=== PATIENT | female | born 1950 | race Two or more races ===

== ENCOUNTER → 2022-04-10 | Outpatient (CLI) | payer MEDICARE ==
--- NOTE | 2022-04-10 14:16 | US ---
EXAMINATION TYPE: US pelvic complete DATE OF EXAM: 04/10/2022 COMPARISON: NONE CLINICAL HISTORY: 71-year-old female R10.2 PELVIC PAIN. Pressure partial hysterectomy. TECHNIQUE: Transabdominal (TA). FINDINGS: EXAM MEASUREMENTS: Uterus: Surgically absent Endometrial Stripe: Surgically absent Right Ovary: 2.7 x 1.4 x 2.1 cm 1. Uterus: Surgically absent 2. Endometrium: Surgically absent 3. Right Ovary: Tiny 5 mm cyst within, otherwise unremarkable. 4. Left Ovary: Obscured by overlying bowel gas 5. Bilateral Adnexa: wnl 6. Posterior cul-de-sac: wnl IMPRESSION: Status post hysterectomy. Unable to visualize the left ovary. Tiny 5 mm cyst within the right ovary. Consider precautionary one-year follow-up exam.
== END | disposition home or self-care (01) ==
LOC: RADUSWWP 12:19
PROVIDERS: ATTEND Obstetrics & Gynecology
DX: N83.201 Unspecified ovarian cyst, right side (principal); Z90.710 Acquired absence of both cervix and uterus
CPT/HCPCS: 76856

== ENCOUNTER → 2023-03-27 | Outpatient (CLI) | payer MEDICARE ==
[~2023-03-27] MED LIST: DENOSUMAB 60 MG/ML 1 ML SYRINGE SQ NR
[2023-03-27 14:08] VITALS: BP 148/88; PULSE 91; RESP 16; TEMP 97.9
== END ==
LOC: PROCWHC3 13:56
PROVIDERS: ATTEND Internal Medicine Geriatric Medicine
DX: M81.0 Age-related osteoporosis without current pathological fracture (principal)
CPT/HCPCS: 96372; J0897

== ENCOUNTER → 2023-07-29 | Outpatient (CLI) | payer MEDICARE ==
[2023-07-29 13:24] VITALS: BP 151/86; PULSE 94; RESP 16; TEMP 97.7
--- NOTE | 2023-07-29 13:57 | P.PAINPG ---
PQRS Measure Charge Sheet Comment: HISTORY OF PRESENT ILLNESS: A 72 yr old female w daughter at side as a referral from [facility] presents today w severe and chronic LBP > 1 yr secondary to DDD, spondylosis and facet arthropathy without myelopathy for evaluation. Pt states pain level is provoked at 7 /10 in intensity, constant, localized in the lumbar spine, predominantly axial, sharp in character w occasional shooting pain towards the RLE. Pain is provoked by standing/ walking or coughing. Pain is alleviated by alternating heat & ice, medications (Neurontin, Baclofen, Ibu), BioFreeze topical, sitting, repositioning and rest. Oswestry axial pain score at 23. PMH: OA, HTN, Hyperlipidemia, Asthma PSH: Hysterectomy, Bladder Lift, Appendectomy, Tonsillectomy SH: Never smoker, Rare ETOH use, No illicit drug use FH: Fa- CHF All: See list Meds: See list REVIEW OF ORGAN SYSTEMS: CONSTITUTIONAL: No fevers or chills. No recent weight loss. NEUROLOGICAL: + numbness and tingling along the distal extremities. No seizure disorders or headaches. MUSCULOSKELETAL: + pain PSYCHIATRIC: Denies current depression or suicidal thoughts. Physical Examinations : Constitutional : Cooperative , not in acute distress . Neurologic : Cranial nerve II to XII intact. No focal neurological deficits. Psychiatric : alert & oriented x 3. Matching mood & appropriate affect. Judgment & insight intact. Musculoskeletal : Cervical Spine Motor strength in the deltoid and biceps: Normal right side. Normal Left side Motor strength biceps and the wrist extensors: Normal right side . Normal left side Motor strength in the triceps muscle: Normal right side. Normal left side Deep tendon reflexes: Normal at the biceps. Normal at Brachioradialis. Normal at triceps Vertebral body tenderness to deep palpation over Cervical facet loading test: positive bilaterally Spurling test: positive bilaterally Neck distraction test: positive bilaterally Cullen sign: positive bilaterally Lumbar spine Motor strength lower extremities ,thigh and legs 5/5 Right side , 5/5 Left side Deep tendon reflexes : Normal Knee Jerk. Normal Ankle Jerk Vertebral body tenderness over L3 Kulkarni Test positive BL L2-L3 Lumbar facet Loading Test: positive Right / positive Left Range of motion of the lumbar spine Flexion 30 degrees, extension 10 degrees Straight Leg Raise test: Left/ Right positive at degree Lux test: positive right / positive left. Severe tenderness over the Sacroiliac joint on the Right / Left sides Gaenslen test: positive bilaterally Seated flexion test: positive bilaterally. Sacral spine : Severe tenderness over the Sacroiliac joint: right side / left side Range of motion: Flexion of the lumbar spine <60 degrees Range of motion: Extension of the lumbar spine <20 degrees Gaenslen's Test positive Lux test: positive right side / left side Thigh Thrust Test Sacral Thrust Test Imaging: MRI noncontrast of the lumbar spine from 03/11/2023 reviewed Assessment/ Plan : Lumbar DDD Recommendation of NIKA L2-L3 #1. May need a series of injections for optimal pain relief. Risks, benefits of procedure discussed and patient verbalized understanding. Admits to anti- coagulant use or medical history of diabetes. Protocol for discontinuation/ continuation of medications heidi procedure discussed. All questions answered. I have spent greater than 30 minutes on patient care today. Dr Honeycutt was available by phone for the evaluation of this patient. The time was used to review the medical records including relevant urine studies and Prescription history (MAPs), review of the available imaging, evaluation and examination of the patient, coordination of care with the medical staff and if applicable referring physicians, as well as creation of the medical record PQRS Narrative: Smoking Status Former smoker Home Medications: Ambulatory Orders Simvastatin [Zocor] 40 mg PO HS 12/25/13 Baclofen 10 mg PO DAILY 03/27/23 Calcium Carbonate/Vitamin D3 [Calcium 500 mg-Vit D3 5 mcg (200 Unit)] 1 each PO DAILY 03/27/23 Gabapentin [Neurontin] 100 mg PO HS 03/27/23 Ibuprofen [Motrin] 800 mg PO DAILY 03/27/23 Losartan [Cozaar] 50 mg PO DAILY 03/27/23 Montelukast [Singulair] 10 mg PO DAILY 03/27/23 busPIRone HCl [Buspar] 5 mg PO BID 03/27/23 Calcium Carbonate/Vitamin D3 [Calcium 500-Vit D3 5 Mcg (200 Iu)] 1 each PO 07/29/23 Cranberry Fruit Extract [Cranberry] 500 mg PO 07/29/23 Cyanocobalamin [Vitamin B-12] 500 mcg PO DAILY 07/29/23 Ibuprofen 800 mg PO Q8H 07/29/23 Meloxicam 7.5 mg PO 07/29/23 Metoprolol Succinate (ER) [Toprol Xl] 25 mg PO DAILY 07/29/23 Multivitamin [Multivitamins Adult Gummies] 1 each PO 07/29/23 Rosuvastatin Calcium 5 mg PO 07/29/23 busPIRone HCL 5 mg PO BID 07/29/23 hydroCHLOROthiazide 25 mg PO 07/29/23 methocarbamoL 750 mg PO 07/29/23 Controlled Substance Measures - Controlled Substance Measures Is patient prescribed a controlled substance at discharge?: No
== END ==
LOC: PNWHC3 09:34
PROVIDERS: ATTEND Specialist
DX: M47.816 Spondylosis without myelopathy or radiculopathy, lumbar region (principal); M51.36 Other intervertebral disc degeneration, lumbar region; Z87.891 Personal history of nicotine dependence
CPT/HCPCS: 99211

== ENCOUNTER 2023-08-06 06:34 | Day surgery (SDC) | payer MEDICARE ==
[2023-08-02 14:20] VITALS: BMI 19.3
[~2023-08-06 06:34] MED LIST changes: -DENOSUMAB 60 MG/ML 1 ML SYRINGE SQ NR; +LACTATED RINGERS 1,000 ML IV SCH
[2023-08-06 07:25] VITALS: TEMP 98.2
[2023-08-06] MEDS ORDERED: methylPREDNISolone ACETATE 40 MG/ML 1 ML VIAL ONE (07:48)
[2023-08-06] MEDS ORDERED: IOPAMIDOL M200 10 ML VIAL ONE (07:48)
--- NOTE | 2023-08-06 07:55 | P.PCN ---
Date of Procedure: 08/06/23 Procedure(s) Performed: PREOPERATIVE DIAGNOSIS: 1- Lumbar Degenerative Disc Diseases 2-Lumbar spondylosis with Facet arthropathy without myelopathy. POSTOPERATIVE DIAGNOSIS: 1-lumbar degenerative disc disease. 2-lumbar spondylosis with facet arthropathy without myelopathy. PROCEDURE 1. Lumbar epidural steroid injection under fluoroscopic guidance at the L2-3 level. (Fluoroscopy imaging was available in radiology department) 2. Lumbar epidurogram. ANESTHESIA: Lidocaine 1% 3 and then only. EBL: Minimal PROCEDURE INDICATION: The patient with low back pain and radiculitis symptoms unresponsive to conservative treatment. Fluoroscopy was used to optimize visualization of the needle placement and to maximize safety. PROCEDURE DESCRIPTION / TECHNIQUE: The patient was seen and identified in the preoperative area. Risks, benefits, complications including but not limited to infections ,bleeding ,allergic reaction to the medications ,nerve damage and not complete pain releife , and alternatives were discussed with the patient. The patient agreed to proceed with the procedure and signed the consent, and vital signs were stable. Patient was taken to the OR and time out was completed. The patient was placed in the prone position on procedure table and a pillow was placed under the ab domen to reduce lumbar lordosis. The lumbosacral area was prepped and draped in the usual sterile fashion.ere closely monitored during the procedure. Vital signs was monitered during the entire procedure. Using anterior-posterior fluoroscopy, the L2-3 interlaminar space was identified and the skin over this site was marked and then infiltrated with 1% lidocaine subcutaneously. Subsequently, a 20-gauge Tuohy epidural needle was inserted and advanced toward the epidural space using the ``Loss of resistance technique and guided by AP and lateral fluoroscopy. The correct needle position in the epidural space was verified with the injection of 2 mL of the water soluble contrast dye Isovue 200 contrast and observing an excellent epidurogram with the epidural spread of the dye, after negative aspiration for blood and CSF and in the absence of paresthesias. Again after negative aspiration, a 5 ml mixture containing 40 mg of Depo-medrol ( Preservetive Free ), and 2 ml of preservative free Normal Saline, and 2 ml of preservative free lidocaine 1% solution was injected and a washout of epidurogram was seen. Needle was withdrawn intact, skin was cleansed, and bandages were applied. COMPLICATIONS: None DISPOSITION / PLANS: The patient was placed in a supine position and transferred to the recovery area in a stable condition for observation. There was no evidence of lower extremity motor or sensory deficit after the procedure. Patient was discharged from the recovery room after meeting discharge criteria. Home discharge instructions were given to the patient by the staff. The patient was reexamined prior to discharge. The patient will schedule a follow up in the clinic in 2-4 weeks.
[2023-08-06 08:11] VITALS: RESP 16
[2023-08-06 08:55] VITALS: BP 190/96; PULSE 89
--- NOTE | 2023-08-06 13:20 | FL ---
EXAMINATION TYPE: FL guided pain mgmt statistic DATE OF EXAM: 08/06/2023 FLUOROSCOPY Fluoroscopy time of 3 seconds was used during lumbar epidural steroid injection. 1 image/s document/ s the procedure. .[id number] mGycm2 DAP dose
== END 2023-08-06 08:30 | disposition home or self-care (01) ==
LOC: ORPAIN 06:34
PROVIDERS: ATTEND Specialist
DX: M51.16 Intervertebral disc disorders with radiculopathy, lumbar region (principal); M47.26 Other spondylosis with radiculopathy, lumbar region; Z79.899 Other long term (current) drug therapy
CPT/HCPCS: 62323; Q9966; J1010

== ENCOUNTER → 2023-08-29 | Outpatient (CLI) | payer MEDICARE ==
[2023-08-29 10:15] VITALS: BP 180/88; PULSE 78; RESP 15; TEMP 98.2
--- NOTE | 2023-08-29 14:32 | P.PAINPG ---
PQRS Measure Charge Sheet Comment: HISTORY OF PRESENT ILLNESS: A 72 yr old female w daughter at side presents today w severe and chronic LBP > 1 yr secondary to DDD, spondylosis and facet arthropathy without myelopathy for evaluation s/p INKA L2-L3 #1. Pt states she experienced 80 % pain relief x 3 wks s/p procedure. Pt states pain level is provoked at 1 /10 in intensity, constant, localized in the lumbar spine, predominantly axial, sharp in character w occasional shooting pain towards the RLE. Pain is provoked by standing/ walking or coughing. Pain is alleviated by physician guided home stretching regimen daily since Mar 2023, alternating heat & ice, medications, topical, sitting, repositioning and rest. Oswestry axial pain score at 12. Interventional procedures include NIKA L2-L3 x1 Medications include Neurontin, Baclofen, Ibu, BioFreeze Gel REVIEW OF ORGAN SYSTEMS: CONSTITUTIONAL: No fevers or chills. No recent weight loss. NEUROLOGICAL: + numbness and tingling along the distal extremities. No seizure disorders or headaches. MUSCULOSKELETAL: + pain PSYCHIATRIC: Denies current depression or suicidal thoughts. Physical Examinations : Constitutional : Cooperative , not in acute distress . Neurologic : Cranial nerve II to XII intact. No focal neurological deficits. Psychiatric : alert & oriented x 3. Matching mood & appropriate affect. Judgment & insight intact. Musculoskeletal : Cervical Spine Motor strength in the deltoid and biceps: Normal right side. Normal Left side Motor strength biceps and the wrist extensors: Normal right side . Normal left side Motor strength in the triceps muscle: Normal right side. Normal left side Deep tendon reflexes: Normal at the biceps. Normal at Brachioradialis. Normal at triceps Vertebral body tenderness to deep palpation over Cervical facet loading test: positive bilaterally Spurling test: positive bilaterally Neck distraction test: positive bilaterally Cullen sign: positive bilaterally Lumbar spine Motor strength lower extremities ,thigh and legs 5/5 Right side , 5/5 Left side Deep tendon reflexes : Normal Knee Jerk. Normal Ankle Jerk Vertebral body tenderness over L3 Kulkarni Test positive BL L2-L3 Lumbar facet Loading Test: positive Right / positive Left Range of motion of the lumbar spine Flexion 30 degrees, extension 10 degrees Straight Leg Raise test: Left/ Right positive at degree Lux test: positive right / positive left. Severe tenderness over the Sacroiliac joint on the Right / Left sides Gaenslen test: positive bilaterally Seated flexion test: positive bilaterally. Sacral spine : Severe tenderness over the Sacroiliac joint: right side / left side Range of motion: Flexion of the lumbar spine <60 degrees Range of motion: Extension of the lumbar spine <20 degrees Gaenslen's Test positive Lux test: positive right side / left side Thigh Thrust Test Sacral Thrust Test Imaging: MRI noncontrast of the lumbar spine from 03/11/2023 reviewed Assessment/ Plan : Lumbar DDD Will manage residual pain and may RTC on an as needed basis. All questions answered. I have spent greater than 30 minutes on patient care today. Dr Honeycutt was av ailable by phone for the evaluation of this patient. The time was used to review the medical records including relevant urine studies and Prescription history (MAPs), review of the available imaging, evaluation and examination of the patient, coordination of care with the medical staff and if applicable referring physicians, as well as creation of the medical record PQRS Narrative: Smoking Status Former smoker Hx Alcohol Use (MH) No Home Medications: Ambulatory Orders Baclofen 10 mg PO QAM 03/27/23 Gabapentin [Neurontin] 100 mg PO HS 03/27/23 Losartan [Cozaar] 50 mg PO QAM 03/27/23 Montelukast [Singulair] 10 mg PO QAM 03/27/23 Calcium Carbonate/Vitamin D3 [Calcium 500-Vit D3 5 Mcg (200 Iu)] 1 each PO QAM 07/29/23 Cranberry Fruit Extract [Cranberry] 500 mg PO QAM 07/29/23 Cyanocobalamin [Vitamin B-12] 500 mcg PO QAM 07/29/23 Ibuprofen 800 mg PO Q8H PRN 07/29/23 Meloxicam 7.5 mg PO QAM 07/29/23 Metoprolol Succinate (ER) [Toprol Xl] 25 mg PO QAM 07/29/23 Multivitamin [Multivitamins Adult Gummies] 1 each PO QAM 07/29/23 Rosuvastatin Calcium 5 mg PO QAM 07/29/23 busPIRone HCL 5 mg PO BID 07/29/23 hydroCHLOROthiazide 25 mg PO QAM 07/29/23 methocarbamoL 750 mg PO TID PRN 07/29/23 Controlled Substance Measures - Controlled Substance Measures Is patient prescribed a controlled substance at discharge?: No
== END | disposition home or self-care (01) ==
LOC: PNWHC3 09:31
PROVIDERS: ATTEND Specialist
DX: M51.36 Other intervertebral disc degeneration, lumbar region (principal); Z87.891 Personal history of nicotine dependence
CPT/HCPCS: 99211

== ENCOUNTER → 2023-09-27 | Outpatient (CLI) | payer MEDICARE ==
[2023-09-27] MEDS: DENOSUMAB 60 MG/ML 1 ML SYRINGE SQ NR (13:15)
[2023-09-27 13:19] VITALS: BP 133/72; PULSE 96; RESP 16; TEMP 97.8
== END ==
LOC: PROCWHC3 13:03
PROVIDERS: ATTEND Internal Medicine Geriatric Medicine
DX: M81.0 Age-related osteoporosis without current pathological fracture (principal)
CPT/HCPCS: 96372; J0897

== ENCOUNTER → 2023-10-02 | Outpatient (CLI) | payer MEDICARE ==
[2023-10-02 09:45] VITALS: BP 149/79; PULSE 79; RESP 16
--- NOTE | 2023-10-02 14:47 | P.PAINPG ---
Objective - Vital Signs Vital signs: Intake & Output 10/01/23 10/02/23 10/02/23 18:59 06:59 18:59 Weight 42.638 kg PQRS Measure Charge Sheet History and Exam Findings: All other causes of pain ruled out Comment: HISTORY OF PRESENT ILLNESS: A 72 yr old female presents today w severe and chronic LBP > 1 yr secondary to DDD, spondylosis and facet arthropathy without myelopathy for evaluation . Pt states pain level is provoked at 8 /10 in intensity, constant, localized in the lumbar spine, predominantly axial, sharp in character w occasional shooting pain towards the RLE. Pain is provoked by standing/ walking or coughing. Pain is alleviated by physician guided home stretching regimen daily since Mar 2023, alternating heat & ice, medications, topical, sitting, repositioning and rest. Oswestry axial pain score at 15. Interventional procedures include NIKA L2-L3 x1 Medications include Neurontin, Baclofen, Ibu, BioFreeze Gel REVIEW OF ORGAN SYSTEMS: CONSTITUTIONAL: No fevers or chills. No recent weight los s. NEUROLOGICAL: + numbness and tingling along the distal extremities. No seizure disorders or headaches. MUSCULOSKELETAL: + pain PSYCHIATRIC: Denies current depression or suicidal thoughts. Physical Examinations : Constitutional : Cooperative , not in acute distress . Neurologic : Cranial nerve II to XII intact. No focal neurological deficits. Psychiatric : alert & oriented x 3. Matching mood & appropriate affect. Judgment & insight intact. Musculoskeletal : Cervical Spine Motor strength in the deltoid and biceps: Normal right side. Normal Left side Motor strength biceps and the wrist ex tensors: Normal right side . Normal left side Motor strength in the triceps muscle: Normal right side. Normal left side Deep tendon reflexes: Normal at the biceps. Normal at Brachioradialis. Normal at triceps Vertebral body tenderness to deep palpation over Cervical facet loading test: positive bilaterally Spurling test: positive bilaterally Neck distraction test: positive bilaterally Cullen sign: positive bilaterally Lumbar spine Motor strength lower extremities ,thigh and legs 5/5 Right side , 5/5 Left side Deep tendon reflexes : Normal Knee Jerk. Normal Ankle Jerk Vertebral body tenderness over L3 Kulkarni Test positive BL L2-L3 Lumbar facet Loading Test: positive Right / positive Left Range of motion of the lumbar spine Flexion 30 degrees, extension 10 degrees Straight Leg Raise test: Left/ Right positive at degree Lux test: positive right / positive left. Severe tenderness over the Sacroiliac joint on the Right / Left sides Gaenslen test: positive bilaterally Seated flexion test: positive bilaterally. Sacral spine : Severe tenderness over the Sacroiliac joint: right side / left side Range of motion: Flexion of the lumbar spine <60 degrees Range of motion: Extension of the lumbar spine <20 degrees Gaenslen's Test positive Lux test: positive right side / left side Thigh Thrust Test Sacral Thrust Test Imaging: MRI noncontrast of the lumbar spine from 03/11/2023 reviewed Assessment/ Plan : Lumbar DDD Recommendation of NIKA L2-L3 #2. May need series of injections for optimal pain relief. Risks, benefits of procedure discussed and pt verbalized understanding. Protocol for discontinuation/ continuation of medications heidi procedure discussed. All questions answered. I have spent greater than 30 minutes on patient care today. Dr Honeycutt was available by phone for the evaluation of this patient. The time was used to review the medical records including relevant urine studies and Prescription history (MAPs), review of the available imaging, evaluation and examination of the patient, coordination of care with the medical staff and if applicable referring physicians, as well as creation of the medical record PQRS Narrative: Smoking Status Former smoker Hx Alcohol Use (MH) No Home Medications: Ambulatory Orders Baclofen 10 mg PO QAM 03/27/23 Gabapentin [Neurontin] 100 mg PO HS 03/27/23 Losartan [Cozaar] 50 mg PO QAM 03/27/23 Montelukast [Singulair] 10 mg PO QAM 03/27/23 Calcium Carbonate/Vitamin D3 [Calcium 500-Vit D3 5 Mcg (200 Iu)] 1 each PO QAM 07/29/23 Cranberry Fruit Extract [Cranberry] 500 mg PO QAM 07/29/23 Cyanocobalamin [Vitamin B-12] 500 mcg PO QAM 07/29/23 Ibuprofen 800 mg PO Q8H PRN 07/29/23 Meloxicam 7.5 mg PO QAM PRN 07/29/23 Metoprolol Succinate (ER) [Toprol Xl] 25 mg PO QAM 07/29/23 Multivitamin [Multivitamins Adult Gummies] 1 each PO QAM 07/29/23 Rosuvastatin Calcium 5 mg PO QAM 07/29/23 busPIRone HCL 5 mg PO BID 07/29/23 hydroCHLOROthiazide 25 mg PO QAM 07/29/23 Controlled Substance Measures - Controlled Substance Measures Is patient prescribed a controlled substance at discharge?: No
== END ==
LOC: PNWHC3 09:31
PROVIDERS: ATTEND Specialist
DX: M51.36 Other intervertebral disc degeneration, lumbar region (principal); Z87.891 Personal history of nicotine dependence
CPT/HCPCS: 99211

== ENCOUNTER 2023-11-07 12:41 | Day surgery (SDC) | payer MEDICARE ==
[2023-11-07 13:15] VITALS: TEMP 98.9
[2023-11-07] MEDS ORDERED: methylPREDNISolone ACETATE 40 MG/ML 1 ML VIAL ONE (13:32)
[2023-11-07] MEDS ORDERED: IOPAMIDOL M200 10 ML VIAL ONE (13:32)
--- NOTE | 2023-11-07 13:38 | P.PCN ---
Date of Procedure: 11/07/23 Procedure(s) Performed: PREOPERATIVE DIAGNOSIS: 1- Lumbar Degenerative Disc Diseases 2-Lumbar spondylosis with Facet arthropathy without myelopathy. POSTOPERATIVE DIAGNOSIS: 1-lumbar degenerative disc disease. 2-lumbar spondylosis with facet arthropathy without myelopathy. PROCEDURE 1. Lumbar epidural steroid injection under fluoroscopic guidance at the L2-3 level. (Fluoroscopy imaging was available in radiology department) 2. Lumbar epidurogram. ANESTHESIA: Lidocaine 1% 3 and then only. EBL: Minimal PROCEDURE INDICATION: The patient with low back pain and radiculitis symptoms unresponsive to conservative treatment. Fluoroscopy was used to optimize visualization of the needle placement and to maximize safety. PROCEDURE DESCRIPTION / TECHNIQUE: The patient was seen and identified in the preoperative area. Risks, benefits, complications including but not limited to infections ,bleeding ,allergic reaction to the medications ,nerve damage and not complete pain releife , and alternatives were discussed with the patient. The patient agreed to proceed with the procedure and signed the consent, and vital signs were stable. Patient was taken to the OR and time out was completed. The patient was placed in the prone position on procedure table and a pillow was placed under the abd omen to reduce lumbar lordosis. The lumbosacral area was prepped and draped in the usual sterile fashion.ere closely monitored during the procedure. Vital signs was monitered during the entire procedure. Using anterior-posterior fluoroscopy, the L2-3 interlaminar space was identified and the skin over this site was marked and then infiltrated with 1% lidocaine subcutaneously. Subsequently, a 20-gauge Tuohy epidural needle was inserted and advanced toward the epidural space using the ``Loss of resistance technique and guided by AP and lateral fluoroscopy. The correct needle position in the e pidural space was verified with the injection of 2 mL of the water soluble contrast dye Isovue 200 contrast and observing an excellent epidurogram with the epidural spread of the dye, after negative aspiration for blood and CSF and in the absence of paresthesias. Again after negative aspiration, a 5 ml mixture containing 40 mg of Depo-medrol ( Preservetive Free ), and 2 ml of preservative free Normal Saline, and 2 ml of preservative free lidocaine 1% solution was injected and a washout of epidurogram was seen. Needle was withdrawn intact, skin was cleansed, and bandages were applied. COMPLICATIONS: None DISPOSITION / PLANS: The patient was placed in a supine position and transferred to the recovery area in a stable condition for observation. There was no evidence of lower extremity motor or sensory deficit after the procedure. Patient was discharged from the recovery room after meeting discharge criteria. Home discharge instructions were given to the patient by the staff. The patient was reexamined prior to discharge. The patient will schedule a follow up in the clinic in 2-4 weeks.
[2023-11-07 13:45] VITALS: BP 117/59; PULSE 83; RESP 18
--- NOTE | 2023-11-07 13:48 | FL ---
Intraoperative/procedural fluoroscopic services were provided for lumbar epidural steroid injection. Total fluoroscopy time is 1.4 seconds with a total of 1 submitted image to PACS. Total DAP [id number] mG ym2. Please see the operative note for further details.
== END 2023-11-07 13:53 ==
LOC: ORPAIN 12:41
PROVIDERS: ATTEND Specialist
DX: M51.16 Intervertebral disc disorders with radiculopathy, lumbar region (principal); M47.26 Other spondylosis with radiculopathy, lumbar region; Z79.1 Long term (current) use of non-steroidal anti-inflammatories (NSAID)
CPT/HCPCS: 62323; Q9966; J1010

== ENCOUNTER → 2024-01-08 | Outpatient (CLI) | payer MEDICARE ==
--- NOTE | 2024-01-13 13:46 | MR ---
EXAMINATION TYPE: MR lumbar spine wo con DATE OF EXAM: 01/08/2024 COMPARISON: None HISTORY: Lower back pain, BLE radiculopathy. CONTRAST: 0 mL intravenous Gadavist. TECHNIQUE: Multiplanar, multisequence images of the lumbar spine were acquired. FINDINGS: There may be a transitional level. For purposes of this examination the lowest disc level i s labeled S1-2. Plain film correlation recommended prior to any surgical intervention. 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 Lowest disc level appears to be the S1-2 level L5-S1: Disc desiccation and narrowing of disc height is present. No AP spinal canal stenosis present. Facet hypertrophy is present. Neural foramen are patent. L4-L5: Ligamentum flavum laxity has posterior lateral thecal sac contact. No AP spinal canal stenosis is present. Neural foramen are patent. L3-L4: Broad-based disc bulge has moderate anterior thecal sac compression. Facet hypertrophy and lig amentum flavum laxity of posterior lateral thecal sac compression. Findings are contributing to moder ate to severe spinal canal stenosis. Mild right and severe left foraminal stenosis is present. Very s ubtle grade 1 spondylolisthesis of L3 anterior to L4 may be present with disc uncovering. L2-L3: Disc bulge is present with moderate anterior thecal sac flattening. Facet hypertrophy and liga mentum flavum laxity are contributing to spinal canal narrowing. Severe right foraminal stenosis is p resent. L1-L2: No significant disc bulge or disc herniation. No spinal canal stenosis. No foraminal stenosi s. T12-L1: No significant disc bulge or disc herniation. No spinal canal stenosis. No foraminal stenos is. IMPRESSION: 1. Spinal canal stenosis L3-4 and to a lesser degree L2-3. 2. Foraminal stenosis appears severe left L3-4, right L2-3 3. Mild grade 1 spondylolisthesis of L3 anteriorly on L4. [facility], , 01/13/2024 1:44 PM
== END | disposition home or self-care (01) ==
LOC: RADMRIMAIN 13:22
PROVIDERS: ATTEND Orthopaedic Surgery
DX: M47.27 Other spondylosis with radiculopathy, lumbosacral region (principal); M51.17 Intervertebral disc disorders with radiculopathy, lumbosacral region; M43.16 Spondylolisthesis, lumbar region; M48.061 Spinal stenosis, lumbar region without neurogenic claudication; M99.73 Connective tissue and disc stenosis of intervertebral foramina of lumbar region
CPT/HCPCS: 72148

== ENCOUNTER → 2024-03-13 | Outpatient (CLI) | payer MEDICARE ==
--- NOTE | 2024-03-13 13:28 | CT ---
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 Bone and soft tissue window settings are submitted as well as coronal and sagittal reconstructions. CT DLP: [address] CTDI: mGy Automated exposure control for dose reduction was used. FINDINGS: The lumbar vertebral segments are normal in height. Slight grade 1 anterolisthesis of L2 on L3. There is moderate disc space narrowing and spondylosis at the L2-3 and L4-5 levels indicating moderate deg enerative disc disease. The L1-2, L3-4 and L5-S1 discs are normal There is no lumbar disc herniation. Secondary to circumferential disc bulge and thickening of ligamentum flavum there is severe spinal st enosis at the L2-3 level. Similar changes result in moderate spinal stenosis at the L3-4 level. There is moderate facet degeneration from L2 through S1. There is no significant bony neural foramina l encroachment. IMPRESSION: 1. Grade 1 anterolisthesis of L2 on L3. 2. Moderate degenerative disc disease at the L2-3 and L4-5 level. 3. No lumbar disc herniation. 4. Severe spinal stenosis at the L2-3 level and moderate spinal stenosis at the L4-5 level. 5. Moderate facet arthropathy throughout the lumbar spine. [facility], , 03/13/2024 1:26 PM
== END | disposition home or self-care (01) ==
LOC: RADCTMAIN 11:27
PROVIDERS: ATTEND Orthopaedic Surgery
DX: M48.061 Spinal stenosis, lumbar region without neurogenic claudication (principal); M51.369 Other intervertebral disc degeneration, lumbar region without mention of lumbar back pain or lower extremity pain; M47.816 Spondylosis without myelopathy or radiculopathy, lumbar region; M43.16 Spondylolisthesis, lumbar region
CPT/HCPCS: 72131

== ENCOUNTER → 2024-04-29 | Outpatient (CLI) | payer MEDICARE | END | disposition home or self-care (01) | LOC: LABPAT 11:40 | PROVIDERS: ATTEND Orthopaedic Surgery | DX: Z01.812 Encounter for preprocedural laboratory examination (principal); M43.16 Spondylolisthesis, lumbar region; M48.061 Spinal stenosis, lumbar region without neurogenic claudication; Z22.322 Carrier or suspected carrier of Methicillin resistant Staphylococcus aureus | CPT/HCPCS: 36415; 86850; 86900; 86901; 87070 ==

== ENCOUNTER 2024-05-05 09:39 | Inpatient (IN) | payer MEDICARE ==
--- NOTE | 2024-05-04 19:32 | P.HPOR ---
"History of Present Illness H&P Date: 04/29/24 .D:Date: 04/29/24 : 01:22pm .T:Title: *PRE-OP H1 [facility] [address] [place] [id number]| PROVIDER: MIKEY LINDO DO CLINICAL SUMMARY: *Ms. Bolanos, a 73-year-old female, presents for pre-operative evaluation before scheduled L3-pelvis decompression with posterolateral and interbody fusion. She reports progressive lumbar pain (VAS 4/10) radiating bilaterally into her lower extremities with persistent numbness and tingling, worse on the right. Physical exam reveals bilateral lower extremity weakness (4/5 strength), positive straight leg raise on the right, and positive bilateral SIJ testing. Imaging demonstrates unstable grade 1 spondylolisthesis at L3-4 and L4-5 with severe central and bilateral foraminal stenosis, along with significant degenerative changes at L5-S1. Conservative management including physical therapy, NIKA injections, medications (NSAIDs, gabapentin, muscle relaxants), and activity modifications has failed to provide relief. Surgery is deemed medically necessary due to progressive neurological deficits and documented instability affecting her quality of life. PROCEDURE: L3-PELVIS DECOMPRESSION AND FUSION DEMOGRAPHICS: Age: 73 year Height: 5' Weight: 104 lbs BP:100/64 BMI: 20.32 kg/m2 Occupation: *Retired CC: *lumbar pain VAS: * 4 HISTORY: Ms. Bolanos presents to the office today, 04/29/24, for *a pre-operative appointment preceding her L3-PELVIS DECOMPRESSION WITH POSTEROLATERAL AND INTERBODY FUSION. Patient describes an aching and burning lumbar pain that radiates into the buttocks and posterior bilateral lower extremities into her toes, associated with persistent numbness and tingling. She does report that her right side is worse. Patient states her pain is increased with walking, sitting, and sit to stand. Patient states she is limited in her ROM of the lumbar spine with bending and twisting. For her symptoms, she has been taking Motrin. She has received several lumbar ESIs with no relief. Patient denies any f/c/sob/cp, perineal numbness or tingling, bowel, or bladder incontinence/retention. Patient is ambulatory independently. P1 The patients past social, medical, family, surgical history, as well as review of systems, have been reviewed. Please refer to the History and Physical form that has been scanned into our electronic medical record system. R0 16 points review of systems completed and as stated in HPI, all other sy stems reviewed are negative. PAST TREATMENTS: PAST IMAGING: YES - TRAUMA RELATED: NO - WORK RELATED: NO - PT IN LAST 6 MONTHS: YES -x2 rounds. First round 30% helpful. Second round minimal help PHYSICIAN DIRECTED HOME EXERCISE PROGRAM: YES -Minimal help ACTIVITY MODIFICAITON: YES -Limited BLTPP 15 lbs MEDICATIONS: YES -[place], Flexeril, Motrin, Tylenol ALTERNATIVE INTERVENTIONS (CHIROPRACTIC, ACCUPUNCTURE, MASSAGE, RICE): YES - BRACING: NO - INJECTIONS (NIKA, TF, RFA): YES, no relief - MEDICAL HISTORY: Past Medical History: REVIEWED STATED IN CHART Past Surgical History: REVIEWED STATED IN CHART Social History: REVIEWED STATED IN CHART SMOKING: Never smoker ETOH: None SUBSTANCES: None Family History: REVIEWED STATED IN CHART P1 Current Medications: Rx: busPIRone Ref: 0 Rx: gabapentin 100 mg capsule Ref: 0 Instructions: take 1 capsule (100 mg) by oral route 3 times per day Rx: losartan 25 mg tablet Ref: 0 Instructions: take 1 tablet (25 mg) by oral route once daily Rx: montelukast 10 mg tablet Ref: 0 Instructions: take 1 tablet (10 mg) by oral route once daily in the evening Rx: rosuvastatin 5 mg tablet Ref: 0 Instructions: take 1 tablet (5 mg) by oral route once daily Rx: IBU 800 mg tablet Ref: 0 Instructions: take 1 tablet (800 mg) by oral route 3 times per day with food Rx: methocarbamoL 750 mg tablet Ref: 0 Instructions: take 1 tablet (750 mg) by oral route 3 times per day as needed for muscle spasm Rx: metoprolol tartrate 25 mg tablet Ref: 0 Instructions: take 1 tablet (25 mg) by oral route 2 times per day Rx: gabapentin 300 mg capsule Ref: 0 Instructions: take 1 capsule (300 mg) by oral route 3 times per day Rx: predniSONE 20 mg tablet Ref: 0 Instructions: take 1 tablet (20 mg) by oral route 2 times per day P1 PHYSICAL EXAM: General: AOX3, NAD, Well hydrate, well nourished HEENT: No lumps or masses Extremities: No color changes, no pooling INTEGUMENT: Appearance: Normal color and turgor Surgical Incisions: NA Hairy Patches: ABSENT Dorsal Skin Dimples: Normal [employer] spots: ABSENT PALPATION: TTP Midline: NO Paracervical: NO Parathoracic: NO Paralumbar: YES SIJ TESTING: TESTED R/L * [place] Finger: +/+ * FABER4: +/+ * Compression:-+/+ * Distraction: -/+ * Thigh thrust: -+/+ * Hip thrust: +/+ POSTURAL BALANCE: Coronal: BALANCED Sagittal: BALANCED Shoulder height: LEVEL Pelvic Girdle: LEVEL ROM AND APPEARANCE: Neck: UNRESTRICTED Lumbar: RESTRICTED Shoulders: Symmetrical Hips: Symmetrical Knees: Symmetrical Hands: Symmetrical Feet: Symmetrical VASCULAR STATUS: PALPABLE PULSES B/L UE AND LE 2/4 RAD/ULNAR/DP/PT Edema: NONE NEUROLOGICAL EXAMINATION: Mental Status: Awake, alert, fully oriented with normal attention, concentration, and memory. Fluent appropriate speech. CRANIAL NERVES: I: Olfactory not assessed. II: Visual acuity normal, no visual field deficit noted with confrontation. III, IV: Normal pupillary reflexes & intact extraocular movements without nystagmus. V, : Intact symmetrical facial sensation. VII: Intact symmetrical facial motor movement: Hearing intact. IX, X: Intact gag, swallow, & normal voice. XI: Sternocleidomastoid, trapezius function intact. XII: Tongue midline with normal movements. TENSIONING: * L'HERMITTE'S SIG:NEG SPURLUNG'S SIGN:NEG CUBITAL TUNNEL COMPRESSION:NEG TINELS AT WRIST:NEG STRAIGH LEG RAISE:POS CONTRALATERAL STRAIGHT LEG RAISE: NEG MOTOR EXAM (0-5/5, NT) Muscle appearance: Symmetrical, without signs of atrophy or dystrophy UPPER EXTREMITY RIGHT LEFT Shoulder Abduction 5 5 Biceps 5 5 Triceps 5 5 Wrist Extension 5 5 Hand Intrinsics 5 5 It Director 5 5 LOWER EXTREMITY RIGHT LEFT Hip Flexion 4 4 Knee Extension 4 4 Knee Flexion 4 4 Dorsiflexion 4 4 Plantarflexion 4 4 EHL 4 4 FHL 4 4 REFLEXES (0-4/2, NT): RIGHT LEFT Bicep 2 2 Brachioradialis 2 2 Triceps 2 2 Patellar 2 1 Achilles 1 2 PATHOLOGICAL REFLEXES: RIGHT LEFT ESTEBAN'S ABSENT ABSENT CLONUS ABSENT ABSENT BABINSKI ABSENT ABSENT RECTAL TONE: INTACT/NT SENSATION (0-4, NT): Sensation intact to LT and Pain * C5-T1 distribution BUE * L2-S2 distribution BLE *Exceptions below* DERMATOMAL DEFICIT/RADICULAR PATTERN: L3-S1 B/L GAIT AND FUNCTIONAL EVALUATION: AMBULATORY AID none ROMBERG'S TEST INTACT HAND AND FINGER DEXTERITY INTACT YES DYSDIADOCHOKINESIA EXAM NEG B/L YES TOE/HEEL WALK INTACT WITH GOOD BALANCE NO SQUAT AND RISE W/O ASSISTANCE TO 60 DEG KNEE FLEXION NO SINGLE LEG STANCE NOT INTACT [place] NT IMAGING: XRAY Date: 09/30/23 Location: in office Region: lumbar spine Views: 2 views IMAGES ARE REVIEWED WITH THE PATIENT IN OFFICE AND DEMONSTRATE THE FOLLOWING: FINDINGS: Unstable spondylolisthesis grade 1 L3-4, L4-5 on F/E films with severe degenerative collapse. Transitional anatomy with mobile S1-2 disc. Severe spondylosis L3-S1 with facet arthrosis severe. No fractures or lesions. Flattened LL due to the collapse noted. MRI Date: 01/08/24 Location: [facility] Region: lumbar Contrast: N IMAGES ARE REVIEWED WITH THE PATIENT IN OFFICE AND DEMONSTRATE THE FOLLOWING: FINDINGS: Transitional anatomy S1-2 noted with mobile disc. -L3-4 Grade 1 spondylolisthesis, unstable with severe central and b/l foraminal stenosis with degnerative disc herniation, ligamental hypertrophy and boggy facets b/l contributing. Pars elongation noted. -L4-5 Grade 1 spondylolisthesis, central and b/l foraminal stenosis that is moderate. Degenerative changes with disc collapse, modic changes II and facet arthroatphy with overgrowth -L5-S1 spondylosis with severe degenerative changes, degneratice collpase and facet arthropathy contributing to moderate central and severe b/l foraminal stenosis. -No fractures -No lesions IMPRESSION: It was my pleasure to have seen and examined Janel. I reviewed the patient's clinical syndrome, physical findings, and imaging studies during the appointment today. It is my impression that the patient has a diagnosis of. 1.L3-4 spondylolisthesis grade 1, spondylosis, and stenosis, severe 2.L4-5 spondylolisthesis grade 1, spondylosis, and stenosis, moderate 3.L5-S1 spondylolisthesis, spondylosis, and stenosis, moderate 4. Lower extremity radiculopathy and weakness 5. Low back pain PLAN: DISCUSSION: -Patient has trialed conservative measures without resolution of her symptoms. We have discussed different treatment options including non-operative and operative courses. At this time the patient has trialed Rx and OTC medications, PT, Home exercies program, massage therapy, water aerobics and multiple other modalities without resolution of their symptoms. She continuers to progress despite these treatemtns and is ready to pursue surgical options. We discussed risks and benefits as outlined below and they are electing to proceed with surgery. SURGICAL RECOMMENDATION -L3-PELVIS DECOMPRESSION WITH POSTEROLATERAL AND INTERBODY FUSION THERAPIES -CONT IF ABLE. -Cont. with home exercises and home PT exercises as able -Cont. with Heat/Ice as warranted -Cont. with supplementation Vit D, Vit C, Ca2+, High protein diet -OK for massage or other alternative treatment modalities as able. If it exacerbates your sx do not continue ACTIVITY -Recommend walking up to 30 min 2x daily on a flat easy surface with good support. -LIMIT BLTPP TO LESS THAN 20 LBS MEDICATIONS -I sent a prescription for Gabapentin 300 and Prednisone 20mg to patient's pharmacy today -Take as directed -Cont. home medications as directed by your PCP. Check with your PCP for any medication interactions or issues if needed. Surgical Procedure Risk Review Janel Bolanos is a 73 year old female presenting for evaluation of sudden onset of continued progressive low back pain, LE weakness, difficulty walking distances with deterioration in gait and station. She is having progressive weakness in her LE b/l as well as numbness and paresthesias. . It was my pleasure to have seen and examined Ms. Bolanos. In our visit today we have had a chance to go over subjective complaints, physical examination findings and treatments, including the natural course history without intervention and various interventional options. The imaging demonstrates L3-S1 severe spondylosis with stenosis. L3-4 and L4-5 Grade 1 spondylolisthesis,unstable. Severe facet arthrosis. On physical exam, Ms. Bolanos demonstrates weakness in b/l LE, pain with ROM of the low back, difficuilty with functioal movements due to her back and leg issues. Continued and progressive sx despite conservative measures. I explained to the patient that as her condition progresses it could cause continued and progressive pain, debility and weakenss . At this time, based on the patients imaging and physical exam, I recommend surgery in the form or a: L3-PELVIS DECOMPRESSION WITH POSTEROLATERAL AND INTERBODYFUSION . I discussed the risk and benefits of this procedure at length with Ms. Bolanos. The patient agreed to consider pursuing the procedure mentioned above. Plan: 1. L3-PELVIS DECOMPRESSION WITH POSTEROLATERAL AND INTERBODY FUSION 2. Follow up with PCP for surgical clearance 3. Review of surgical risks and benefits as well as an educational packet on the proposed surgical procedure. 4. PRE OP LABS, CBC, BMP, PT/INR, CXR, EKG 5. PRE OP PLANNING CT SCAN W/O CONTRAST Risks: All surgical procedures come with inherent risks, including those related to positioning, anesthesia, intraoperative findings, and postoperative complications. It is important to understand that surgery does not come with any guarantee of a successful outcome as complications and adverse events are always possible. The patient was given a handout in office today discussing the surgical procedure and risks associated with the intervention, both of which were discussed with the patient. These risks include but are not limited to the following: ? Experiencing same, different or even worse symptoms in back, neck, arms, or legs compared to before surgery. ? Requiring further surgery or other forms of treatment presently or at some time in the future at same or other levels of the intended spine surgery. ? On an extreme but fortunately relatively rare basis severe complication such as blindness, stroke, heart attack, temporary and/or permanent nerve injury, paralysis, coma, or may occur, sometimes without known explanation. ? Surgical complications may include but are not limited to risk of infection, fluid accumulation in the surgical dissection site, including a seroma or hematoma, that requires additional surgery, wound drainage, bleeding, new numbness or weakness, vision changes/loss, spinal fluid leakage, non-healing and/or infected incision, headaches, difficulty or inability to swallow, hoarseness, hemopneumothorax, pneumothorax, impotence, retrograde ejaculation, vaginal dryness; injury to nerves, spinal cord, blood vessels, lymphatics or other vital organs (i.e., bowel injury, injury to the great vessels); heterotopic bone formation; complications related to the hardware such as screws, rods, cages including misplaced hardware, device failure, instrumentation at the wrong spine level, hardware fracture/breakage, or hardware loosening; vertebral failure of the spinal column above or below the newly placed hardware; retained surgical instrumentations or devices and the need for further surgery. ? Medical risks of the planned spine surgery include but are not limited to generalized Infections to the whole body or local areas outside of the surgical site (sepsis), heart attack, bleeding, anaphylaxis, meningitis, seizure, epilepsy, hearing loss, burn swanson, laceration of the head or other areas of the body, bruising, hypersensitivity of the skin, bladder over distension; allergic reaction; shoulder injury related to positioning; fat, blood and air clots to other areas of the body like heart, lungs, brain; failure of internal organs such as lungs, kidneys, liver and excessive bleeding. If blood transfusions are necessary, note that transfusions may cause intolerance reactions such as anaphylaxis or other complex reactions. Despite best efforts, the results of spine surgery might not heal in terms of bone, soft tissues such as skin, fascia, ligaments, and joints. Additionally, in order to achieve best possible results, spine surgery may be carried out beyond the initially planned levels and involve decompression, fusion including insertion of hardware at levels other than the original intended area of surgical interest change some portions of the procedure in order to ensure the best possible outcomes. With spine surgery and spinal fusion, there are different off label uses of instrumentation (devices, implants and hardware) as well as biological substances (bone morphogenic proteins, demineralized bone matrix) as well as using extra bone from allograft sources (i.e. cadaver bone) or autograft (iliac crest bone, ribs, or the spine itself). The patient has been given information about these practices and their inherent risks and benefits. [facility] Physician Assistants are medically trained surgical providers who function in the outpatient, inpatient, and operating room setting under the direct supervision of the attending surgeon.They assist in the operating room with direct supervision of the attending surgeons. The patient has had a chance to review all the listed information, has been given print outs detailing this information, and has had all his/her questions answered to their satisfaction. It was my pleasure to have seen and examined Ms. Bolanos. In our visit today we have had a chance to go over my understanding of our patient's current condition, the natural course history without intervention and various interventional options. Questions were invited and answered, and the patient wishes to proceed as outlined above. I have seen and examined the patient for 25 minutes and we have spent more than 50% of the time in repeat and detailed counseling about the patient's condition, its natural course history with out and as much as can be predicted with surgery and re-review of various surgical treatment options. In conclusion,Ms. Bolanos and her spouse/partner requested we proceed with the above suggested surgery and are willing to accept risks and limitations of the suggested surgery as nature of the disease process and our best attempts at treatment for the condition. SURGICAL CODING AND AUTHORIZATION RATIONALE PATIENT: Janel Bolanos DATE: January 31, 2024 PROVIDER: Mikey Lindo DO CLINICAL PRESENTATION AND HISTORY * 73-year-old female with progressive lumbar pain Failed conservative management including: * Multiple rounds of physical therapy NIKA injections without relief Medications (NSAIDs, muscle relaxants, gabapentin) Home exercise program Activity modifications * Progressive symptoms include: * Bilateral lower extremity weakness (4/5 strength) Radicular symptoms into bilateral lower extremities Positive straight leg raise Difficulty with ambulation Limited ROM of lumbar spine Functional decline despite conservative measures IMAGING FINDINGS * MRI (01/08/24): L3-4: Grade 1 spondylolisthesis, unstable with severe central and bilateral foraminal stenosis L4-5: Grade 1 spondylolisthesis with moderate central and bilateral foraminal stenosis L5-S1: Severe degenerative changes with moderate central and severe bilateral foraminal stenosis X-rays (09/30/23): Demonstrates unstable spondylolisthesis at L3-4, L4-5 on flexion/extension views Severe spondylosis L3-S1 with severe facet arthrosis PLANNED PROCEDURE L3-Pelvis Decompressive Laminectomy with Posterolateral and Interbody Fusion PRIMARY DIAGNOSIS CODES (ICD-10) * M43.16: Spondylolisthesis, lumbar region M48.06: Spinal stenosis, lumbar region M47.26: Cervical radiculopathy with myelopathy, lumbar region M51.36: Other intervertebral disc degeneration, lumbar region M54.16: Radiculopathy, lumbar region M62.81: Muscle weakness (generalized) M54.5: Low back pain PROCEDURE CODES (CPT) WITH RATIONALE * 13085 - Primary lumbar interbody fusion L4-L5 Justified by grade 1 spondylolisthesis with stenosis at L4-L5 83640 - Secondary lumbar interbody fusion L5-S1 Justified by continued pathology and instability at L5-S1 72792 - Posterior segmental instrumentation (3-6 segments) Required for stabilization of multilevel fusion construct 73540 * Pelvic fixation * Required for extension of fusion construct to pelvis due to: Transitional anatomy with mobile S1-2 disc Multiple level instability Advanced age requiring robust fixation Need for solid foundation of construct * 91918/78616 x2 - Decompressive laminectomy with facetectomy and foraminotomy Justified by severe central and foraminal stenosis at multiple levels Required for neural decompression and cage placement 91157 x3 - Insertion of interbody biomechanical devices Required for placement of interbody cages at L3-4, L4-5 and L5-S1 58257 - Stereotactic computer assistance Required for precise screw placement due to complex anatomy and multilevel pathology MEDICAL NECESSITY RATIONALE * Progressive neurological deficit with documented weakness Failed conservative management including: Multiple NIKA injections Two rounds of physical therapy Medication management Activity modification Radiographic evidence of: Multiple level instability Severe stenosis Grade 1 spondylolisthesis at multiple levels Functional decline affecting activities of daily living Progressive symptoms despite maximal conservative therapy Clear correlation between clinical symptoms and imaging findings RISK FACTORS * Advanced age (73) Low BMI (19.53) Multiple medical comorbidities requiring medication management Multilevel pathology requiring complex surgical approach This surgical intervention is considered medically necessary based on: * Failed conservative management Progressive neurological deficit Documented instability Correlation of symptoms with imaging findings Functional decline affecting quality of life FOLLOW UP: *POST-OP PLAN AT NEXT VISIT: * RECHECK PATIENT EDUCATION: Medications Reviewed: YES In our visit today Ms. Bolanos and I have had a chance to go over my understanding of the patient's current condition, the natural course history without intervention and various interventional options. Questions were invited and answered, and the patient wishes to proceed as outlined above. I will be sure to keep you updated after Ms. Bolanos returns here for further follow-up. Thank you again for your referral. Please do not hesitate to contact me if you have any further questions. Signed and authenticated by: Mikey Malik [facility] [address] [place] [id number] . This message is confidential, intended only for the named recipient(s) and may contain information that is privileged or exempt from disclosure under applicable law. If you are not the intended recipient(s), you are notified that the dissemination, distribution or copying of this information is prohibited. If you received this message in error, please notify the sender then delete this message. Past Medical History Past Medical History: Hearing Disorder / Deafness, Hyperlipidemia, Hypertension, Musculoskeletal Disorder Additional Past Medical History / Comment(s): migraines, degenerative disc, osteoporosis, environmental allergies, deaf left ear, hearing aid right ear History of Any Multi-Drug Resistant Organisms: None Reported Past Surgical History: Appendectomy, Bladder Surgery, Hysterectomy, Tonsillectomy Additional Past Surgical History / Comment(s): cataract surg Past Anesthesia/Blood Transfusion Reactions: No Reported Reaction Additional Past Anesthesia/Blood Transfusion Reaction / Comment(s): no hx blood transfusion Smoking Status: Former smoker - Past Family History Mother Family Medical History: Cancer Additional Family Medical History / Comment(s): colon cancer Father Family Medical History: Congestive Heart Failure (CHF) Medications and Allergies Home Medications Medication Instructions Recorded Confirmed Type Baclofen 10 mg PO QAM 03/27/23 05/01/24 History Gabapentin [Neurontin] 200 mg PO HS 03/27/23 05/01/24 History Losartan [Cozaar] 50 mg PO QAM 03/27/23 05/01/24 History Montelukast [Singulair] 10 mg PO HS 03/27/23 05/01/24 History Calcium Carbonate/Vitamin D3 1 each PO QAM 07/29/23 05/01/24 History [Calcium 500-Vit D3 5 Mcg (200 Iu)] Cranberry Fruit Extract [Cranberry] 500 mg PO QAM 07/29/23 05/01/24 History Cyanocobalamin [Vitamin B-12] 500 mcg PO QAM 07/29/23 05/01/24 History Ibuprofen 800 mg PO Q8H PRN 07/29/23 05/01/24 History Metoprolol Succinate (ER) [Toprol 25 mg PO HS 07/29/23 05/01/24 History Xl] Multivitamin [Multivitamins Adult 1 each PO QAM 07/29/23 05/01/24 History Gummies] Rosuvastatin Calcium 5 mg PO HS 07/29/23 05/01/24 History busPIRone HCL 10 mg PO BID 07/29/23 05/01/24 History hydroCHLOROthiazide 25 mg PO QAM 07/29/23 05/01/24 History Gabapentin [Neurontin] 100 mg PO DAILY 05/01/24 05/01/24 History Allergies Allergy/AdvReac Type Severity Reaction Status Date / Time No Known Allergies Allergy Verified 05/01/24 13:21 Physical Examination Osteopathic Statement: *. No significant issues noted on an osteopathic structural exam other than those noted in the History and Physical/Consult."
[~2024-05-05 09:39] MED LIST changes: +GABAPENTIN 300 MG CAP PO PRN; -LACTATED RINGERS 1,000 ML IV SCH; +LIDOCAINE 1% (10MG/ML) FOR IV START INTRADERMA PRN; +TRANEXAMIC 1,000 MG/100ML-NACL 1,000 MG in SALINE 1 100ML.BAG IVPB PRN
[2024-05-05] MEDS: ONDANSETRON 4 MG/2 ML VIAL IVP ONE (10:47)
[2024-05-05] MEDS: DEXAMETHASONE SOD PHOSPHATE 4 MG/ML 1 ML VIAL IV ONE (10:47)
[2024-05-05] MEDS: LACTATED RINGERS 1,000 ML IV SCH (10:48)
[2024-05-05] MEDS: ACETAMINOPHEN TAB 500 MG TAB PO PRN (10:52)
--- NOTE | 2024-05-05 10:52 | P.ANPRN ---
Procedure Note - Anesthesia - Invasive Line Right Central Line Time Out Performed: Yes Date of Procedure: 05/05/24 Time of Procedure: 11:32 Location of Patient: PreOp Preparation: Sterile Prep, Sterile Dressing Central Line Location: Internal Jugular Ultrasound Used: Yes Purpose - Visualization and Identification of Vasculature: Yes Needle Guage: 20 Image Stored and Saved: Yes Narrative: Invasive line placement per sterile protocol utilized.
[2024-05-05] MEDS: IV FLUID CONTINUATION 1,000 ML IV ONE (10:58)
[2024-05-05] MEDS ORDERED: ROCURONIUM 10 MG/ML (5 ML VIAL) IV ONE (11:01)
[2024-05-05] MEDS ORDERED: GLYCOPYRROLATE 0.2 MG/ML 2 ML VIAL ONE (11:01)
[2024-05-05] MEDS ORDERED: fentaNYL (PF) 50 MCG/ML 2 ML AMP ONE (11:01)
[2024-05-05] MEDS ORDERED: NEOSTIGMINE 1 MG/ML 10 ML VIAL ONE (11:01)
[2024-05-05] MEDS ORDERED: SUCCINYLCHOLINE CHLORIDE 200 MG/10 ML VIAL IV ONE (11:01)
[2024-05-05] MEDS ORDERED: PROPOFOL 10 MG/ML 20 ML VIAL IV ONE (11:01)
[2024-05-05] MEDS ORDERED: PHENYLEPHRINE 10 MG/ML VIAL ONE (11:01)
[2024-05-05] MEDS ORDERED: LIDOCAINE 1% INJ 10MG/ML (20 ML MDV) ONE (11:01)
[2024-05-05] MEDS ORDERED: HYDROmorphone (PF) 1 MG/ML ONE (11:01)
[2024-05-05] MEDS ORDERED: KETAMINE HCL IN 0.9 % NACL 50 MG/5 ML SYRINGE ONE (11:01)
[2024-05-05] MEDS ORDERED: MIDAZOLAM 2 MG/2 ML VIAL ONE (11:01)
--- NOTE | 2024-05-05 11:20 | XR ---
EXAMINATION TYPE: XR chest 1V portable DATE OF EXAM: 05/05/2024 11:13 AM COMPARISON: None. CLINICAL INDICATION: Female, 73 years old with history of POST CHEST X RAY., TECHNIQUE: Single AP portable frontal upright view of the chest is obtained. FINDINGS: There is right internal jugular central venous catheter terminating in SVC. Suboptimal stud y due to overlying clothing or blanket material. No obvious pneumothorax is seen. Lungs are grossly c lear. The cardiac silhouette size is within normal limits. The osseous structures are demineralize d. IMPRESSION: No acute process. [facility], , 05/05/2024 11:18 AM
[2024-05-05] MEDS: LACTATED RINGERS 1,000 ML IV ONE (11:30)
[2024-05-05] MEDS: ceFAZolin 3,000 MG in SODIUM CHLORIDE 0.9% IRRIGATIO 3,000 ML IRRIGATION ONE (11:42)
[2024-05-05] MEDS: GENTAMICIN 80 MG in SODIUM CHLORIDE 0.9% IRRIGATIO 3,000 ML IRRIGATION ONE (11:42)
[2024-05-05] MEDS: THROMBIN (BOVINE) 5,000 UNIT VIAL TOPICAL ONE (11:42)
[2024-05-05] MEDS: VANCOMYCIN 1,000 MG VIAL MISCELLANE ONE (13:59)
--- NOTE | 2024-05-05 14:31 | XR ---
Fluoroscopy INDICATION: Pain FINDINGS: Fluoroscopy time: 57 seconds. Total dose area product (DAP) in uGy*m?, mGy*cm? (or similar): 4.9063 Images obtained: 7. Images demonstrate fixation and disc spacer placement through the lumbar spine. IMPRESSION: 1. Documentation of fluoroscopy. [facility], , 05/05/2024 2:28 PM
--- NOTE | 2024-05-05 14:35 | P.OP ---
Date of Procedure: 05/05/24 Preoperative Diagnosis: 1.L3-4 spondylolisthesis grade 1, spondylosis, and stenosis, severe 2.L4-5 spondylolisthesis grade 1, spondylosis, and stenosis, moderate 3.L5-S1 spondylolisthesis, spondylosis, and stenosis, moderate 4. Lower extremity radiculopathy and weakness 5. Low back pain Postoperative Diagnosis: 1.L3-4 spondylolisthesis grade 1, spondylosis, and stenosis, severe 2.L4-5 spondylolisthesis grade 1, spondylosis, and stenosis, moderate 3.L5-S1 spondylolisthesis, spondylosis, and stenosis, moderate 4. Lower extremity radiculopathy and weakness 5. Low back pain Procedure(s) Performed: 1. L5-S1 INTRADISCAL OSTEOTOMY, 3 COLUMN FOR DEFORMITY CORRECTION 2. L4-5 INTRADISCAL OSTEOTOMY, 3 COLUMN FOR DEFORMITY CORRECTION 3. L3-4 INTRADISCAL OSTEOTOMY, 3 COLUMN FOR DEFORMITY CORRECTION 4. L5-S1 POSTEROLATERAL AND INTERBODY FUSION 5. L4-5 POSTEROLATERAL AND INTERBODY FUSION 6. L3-4 POSTEROLATERAL AND INTERBODY FUSION 7. SEGMENTAL INSTRUMENTATION L3-PELVIS 8. ATTACHMENT OF THE CONSTRUCT TO THE BONY PELVIS 9. L3-4, L4-5, L5-S1 BILATERAL LAMINECTOMY, COMPLETE FACETECTOMY AND FORAMINOTOMY FOR COMPLETE NEURAL DECOMPRESSION, DEFORMITY CORRECTION AND CAGE PLACEMENT 10. INSERTION OF BIOMECHANICAL DEVICES, CAGES x3, L3-4, L4-5, L5-S1 11. USE OF [employer] NAVIGATION FOR THE ASSISTANCE IN ACCURATE SCREW PLACEMENT USE OF IONO-REMAINED STABLE THROUGH CASE Implants: -KAYLYN EVEREST RODS AND SCREWS -GRANIT PELVIC SCREWS X2 -GLOBUS SABLE CAGES 15 DEG LONG; 8 DEG LONG, 8 DEG MED -MAGNATOS, CONTOUR, DBM, AUTOGRAFT, ALLOGRAFT, ALLOCELL, ARTHROCELL Anesthesia: GETA Surgeon: Mikey [place] Account Executive #1: Suzanne Rice (WAS PRESENT AND ASSISTED WITH ALL ASPECTS OF THE CASE FROM POSITION TO DRESSING PLACEMENT) Estimated Blood Loss (ml): 200 IV fluids (ml): 1,200 Urine output (ml): 275 Pathology: none sent Condition: stable Disposition: PACU Indications for Procedure: Ms. Bolanos, a 73-year-old female, presents for pre-operative evaluation before scheduled L3-pelvis decompression with posterolateral and interbody fusion. She reports progressive lumbar pain (VAS 4/10) radiating bilaterally into her lower extremities with persistent numbness and tingling, worse on the right. Physical exam reveals bilateral lower extremity weakness (4/5 strength), positive straight leg raise on the right, and positive bilateral SIJ testing. Imaging demonstrates unstable grade 1 spondylolisthesis at L3-4 and L4-5 with severe central and bilateral foraminal stenosis, along with significant degenerative changes at L5-S1. Conservative management including physical therapy, NIKA injections, medications (NSAIDs, gabapentin, muscle relaxants), and activity modifications has failed to provide relief. Surgery is deemed medically necessary due to progressive neurological deficits and documented instability affecting her quality of life. PROCEDURE: L3-PELVIS DECOMPRESSION AND FUSION Description of Procedure: L3-PELVIS DECOMPRESSION AND FUSION (NITHIN) SI BONE GRANIT PELVIS SCREWS The patient was seen and examined in the preoperative area. All preoperative protocols were followed. Informed consent was obtained, risks and benefits of the procedure were discussed at length. Risks including bleeding infection damage to the surrounding tissue and risk of reoperation were discussed with the patient. Risk of anesthesia up to and including was discussed with the patient. These are outlined in the risk review. They were willing to accept these risks and all the risks of surgery. The patient was given a weight-based dose of antibiotics in the form of 3 g Ancef. The patient was seen and evaluated by the anesthesia team who deemed them fit for surgery. The site was marked, the patient was willing to proceed with the procedure. The patient was transferred to the operative suite by the Department of anesthesia. They were then drifted off to sleep by the department anesthesia and GETA was performed. The patient tolerated this well. Basilio catheter was placed by nursing staff, a-traumatically. Once confirmation of lines and ventilation the patient was transferred to a prone [facility] spine table very carefully. The head was secured and stable. X Ray confirmed alignment. All bony prominences including wrists, elbows, axilla, chest, hips, and thighs, and feet were padded very well. Special attention was paid to the genitalia, and these were padded accordingly. SCDs were placed on bilateral lower extremities and were connected. Arms were well padded and placed at 90/90 up and out and well padded. Safety strap and tape placed on the patient. Once in position, again we confirmed good ventilation capabilities and that lines were running appropriately. The patient's lumbosacral pelvic was then exposed. Hair was removed for incision. 1010s were placed outlining the incision site. Standard alcohol was used to clean the incision site and allowed to dry. C-arm was used to bio-bucky the patient and confirm level for incision which was marked with a skin marker. Operative briefing was performed with all teams and everyone in agreement to proceed. The patient was then prepped and draped in a normal sterile fashion. Timeout was then performed, and all parties agreed with the procedure to be performed. Midline skin incision was then made over the previously bookmarked area and dissection taken down to the lumbosacral fascia which was identified and cleaned with a nolasco. There was excessive sub-q adipose that was obtrusive and needed to be retracted. Once midline was identified, fasciotomy was made over the SP of L2-S1 and pelvis. Subperiosteal dissection was then taken down over the lamina and facet joints and TPs were exposed and trough made posterolateral. TPs were then decorticated with a high speed kylie for lateral fusion. Dissection was taken out over the sacrum to the pelvis. SI joint identified and modified Hollis starting point for pelvic screws identified as well. Retractors placed. Wound was irrigated and lateral image with penfield 4 placed at the pars of L4 confirmed levels for operation. SP clamp was then placed for the Xpliant navigation tracker and secured. The wound was then filled with NSS and Z-drape. A 3D Ziehm spin was then obtained and registered. Once confirmation of accuracy screws were then placed from L3-Pelvis using navigation. Navigated high speed kylie was used to make a charter pilot hole followed by a navigated awl-tap passed through the pedicle into the body. A ball tip probe then conf irmed within the pedicle. Screw was then measured and placed using a navigated screwdriver. After screws were placed from L2-S1, AP image confirmed safe placement of screws. Lateral images as well as navigation were then used to place bilateral SI bone Granit pelvic screws. Starting point selected just lateral to the S1 joint and S2 pseudo facet. Lateral image taken and kylie used to make the charter pilot hole. Gearshift then used to pass into the pelvis under lateral imaging just above the sciatic notch. 30 deg/30deg iliac oblique then taken to confirm within the teardrop and ball tip probe used to probe good bone. The screw was then measured and selected and placed under lateral imaging. This was repeated on the contralateral side. Screws were then visualized and appeared safe. Screws were then tested, and reliably tested screws tested above 20 mA. We then proceeded to decompression and interbody placement. Starting at L5-S1, bilateral laminectomy, complete facetectomy and fo raminotomies were performed using high speed bur, Kerrison rongeur. There was exuberant bone formation throughout the entire lumbar spine, making the case very meticulous and difficult. Severe stenosis with dural scarring was noted at L3-S1. There was significant scar tissue surrounding these joints as well as the dura. Once exposed the neural elements were protected and an intradiscal osteotomy, 3 column, was performed for deformity correction at L5-S1. Osteotome was used to make osteotomy in L5 and S1 and for complete disc removal. A box osteotome was then used to widen this bilaterally. This was passed into the anterior 1/3 of L5. This allowed for loosening of this level and correction. A cage was then selected based on shaving and trials. Bleeding endplates were encountered and cartilage removed. Autograft, allograft were then placed anterior to the cage. The cage was then impacted into place under lateral imaging while protecting neural elements. The cage was then expanded into po sition and showed good lift and correction. Pentecostal of lordosis and height achieved. Meticulous hemostasis then performed. Cage was backfilled with DBM and the area irrigated. At L4-5, again, bilateral laminectomy, complete facetectomy and foraminotomies were performed using high speed bur, Kerrison rongeur. There was exuberant bone formation throughout the entire lumbar spine, making the case very meticulous and difficult. Severe stenosis with dural scarring was noted. Once exposed the neural elements were protected and an intradiscal osteotomy, 3 column, was performed for deformity correction at L4-5. Osteotome was used to make osteotomy in L4 and L5 and for complete disc removal. A box osteotome was then used to widen this bilaterally. This was passed into the anterior 1/3 of L4. This allowed for loosening of this level and correction. A cage was then selected based on shaving and trials. Bleeding endplates were encountered and cartilage removed. Autograft, allograft were then placed anterior to the cage. The cage was then impacted into place under lateral imaging while protecting neural elements. The cage was then expanded into position and showed good lift and correction. Pentecostal of lordosis and height achieved. Meticulous hemostasis then performed. Cage was backfilled with DBM and the area irrigated. At L3-4, again for correction, bilateral laminectomy, complete facetectomy and foraminotomies were performed using high speed bur, Kerrison rongeur. There was exuberant bone formation throughout the entire lumbar spine, making the case very meticulous and difficult. Severe stenosis with dural scarring was noted.. There was significant scar tissue surrounding these joints as well as the dura. Once exposed the neural elements were protected and an intradiscal osteotomy, 3 column, was performed for deformity correction at L5-S1. Osteotome was used to make osteotomy in L3 and L4 and for complete disc removal. A box osteotome was then used to widen this bilaterally. This was passed into the anterior 1/3 of L3. This allowed for loosening of this level and correction. A cage was then selected based on shaving and trials. Bleeding endplates were encountered and cartilage removed. Autograft, allograft were then placed anterior to the cage. The cage was then impacted into place under lateral imaging while protecting neural elements. The cage was then expanded into position and showed good lift and correction. Pentecostal of lordosis and height achieved. Meticulous hemostasis then performed. Cage was backfilled with DBM and the area irrigated. At L2-3, bilateral laminectomy, partial medial facetectomy and foraminotomy were performed with facet cyst removal. The wound was irrigated, and meticulous hemostasis performed. Attention was then drawn to yo placement. Rods were selected, measured, cut and bent to appropriate lordosis. They were then secured into pelvic screws b/l. Sequential reduction then done into each screw and set screw placed. Set screws were then final tightened and lateral image showed good lordosis reduction and sagittal alignment. The wound was then irrigated with 2 Irricept irrigations, 1 L betadine, 3L Ancef irrigation, 3L gentamicin irrigation, 3L Irricept through the case and 1L Betadine at the end of the case and 3L NSS. Surgicel was then placed on the dura, which was inspected and had no injury. Then, in the posterolateral gutter was placed, MagnatOs, Autograft and allograft. This was impacted into position and surgical placed over it. 2g Vanco powder was then placed deep in the wound. A deep, subfascial drain was placed and a superficial facial drain placed. We then proceeded with layered closure. #1 PDS placed in the deep fascia. 0 Vicryl placed in the deep subq, 2-0 placed in the superficial subq and eleanor placed in the skin. The wound edges approximated very well. The wound was then cleaned with ETOH and dressed with adaptic, 4x4, ABD and tape. Drains sewed into position. IONM confirmed no changes. The patient was then transferred off the [facility] spine table to their hospital bed a-traumatically. Drains continued to hold suction. The patient was then extubated and transferred to the PACU/ICU in stable condition having tolerated the procedure with no complications.
[2024-05-05] MEDS ORDERED: MAGNESIUM HYDROXIDE 2,400 MG/30 ML CUP PO PRN (14:42)
--- NOTE | 2024-05-05 14:52 | FL ---
EXAMINATION TYPE: FL guidance operating room DATE OF EXAM: 05/05/2024 CLINICAL HISTORY: Low back pain TECHNIQUE: Fluoroscopy. COMPARISON: None. FINDINGS: Fluoroscopic guidance was provided during PLDF lumbar spine procedure performed by Dr. Liam short. A total of 57 seconds of fluoroscopic time was utilized during the procedure and 0 spot branden ges was acquired. Total dose area product (DAP) in uGy*m?, mGy*cm? (or similar: 4.9063. IMPRESSION: As Above. [facility], , 05/05/2024 2:49 PM
[2024-05-05] MEDS: ONDANSETRON 4 MG/2 ML VIAL IVP PRN ×2 (15:50→18:52)
[2024-05-05] MEDS: HYDROmorphone 0.5 MG/0.5 ML SYRINGE IVP PRN ×2 (16:00→20:20)
[2024-05-05] MEDS: KETOROLAC 15 MG/ML 1 ML VIAL IVP SCH (18:01)
[2024-05-05] MEDS: HYDROcodone/APAP 5-325MG 1 EACH TAB PO PRN (18:02)
--- NOTE | 2024-05-05 18:56 | CT ---
EXAMINATION TYPE: CT lumbar spine wo con DATE OF EXAM: 05/05/2024 6:36 PM COMPARISON: 03/13/2024 CLINICAL INDICATION: Female, 73 years old with history of s/p L3-Pelvis decompression and fusion; PHH , post-op pain TECHNIQUE: Multiple axial images were obtained from the midportion of T11 through the sacroiliac alfredo nts. Soft tissue and bone windows in coronal and sagittal planes were obtained and reviewed. 3-D ref ormats of the bones were created on a separate workstation and submitted for review. Contrast used: mL of , (None, if empty). Oral contrast used: (None, if empty). CT DLP: 682.4 mGycm, Automated exposure control for dose reduction was used. FINDINGS: Postsurgical changes to the lumbar spine with fixation hardware at L3, L4, L5 and S1. Discectomy at L 3-L4, L4-L5 and L5-S1. Hardware limits evaluation at these levels. Hardware appears intact. No eviden ce of fracture. Postsurgical changes in the soft tissues with foci of gas present. Drainage catheter with tubing in t he surgical bed. Posterior back skin eleanor are present. Pneumorachis is present. IMPRESSION: Postsurgical changes without evidence of immediate post operative complication. [facility], , 05/05/2024 6:53 PM
[2024-05-05] MEDS: GABAPENTIN 100 MG CAP PO SCH (20:19)
[2024-05-05] MEDS: MONTELUKAST 10 MG TAB PO SCH (20:19)
[2024-05-05] MEDS: busPIRone HCl 10 MG TAB PO SCH (20:19)
[2024-05-05] MEDS: ATORVASTATIN 10 MG TAB PO SCH (20:19)
[2024-05-06] MEDS: HYDROcodone/APAP 10-325MG 1 EACH TAB PO PRN (01:52)
[2024-05-06] MEDS: BACLOFEN 10 MG TAB PO PRN (01:52)
--- NOTE | 2024-05-06 02:26 | CONS ---
CONSULTATION REASON FOR CONSULTATION: Advice regarding hypertension and other medical issues, requested by Orthopedics. HISTORY OF PRESENT ILLNESS: This 73-year-old woman with a past medical history of hypertension, hyperlipidemia, being followed by . underwent L5-S1 interbody fusion and lumbar surgery for severe DJD. Intraoperatively, the patient received some Joey-Synephrine for transient hypotension, otherwise currently the patient is stable, sedated after surgery. Chest x- ray showed no acute process. There is no history of fever or any chills. PAST MEDICAL HISTORY: Hypertension, hyperlipidemia. Rest of the chart is also reviewed. HOME MEDICATIONS: Reviewed include Crestor. Dose and rest of medications reviewed. ALLERGIES: Unknown. FAMILY HISTORY: History of colon cancer. SOCIAL HISTORY: Previous history of smoking. REVIEW OF SYSTEMS: Could not be taken PHYSICAL EXAM: VITAL SIGNS: Pulse is 57, blood pressure 130/64, and respirations 16. HEENT: Conjunctivae normal. CARDIOVASCULAR: S1, S2. RESPIRATIONS: Breath sounds diminished at the bases. No rhonchi. No crackles. ABDOMEN: Soft, nontender. LEGS: No edema. NERVOUS SYSTEM: Nonfocal. LABORATORY DATA: Not available. ASSESSMENT: 1. Status post L3-4, L4-5, L5-S1 bilateral laminectomy for severe degenerative joint disease. 2. Hypertension. 3. Hyperlipidemia. 4. Mild intraoperative hypotension. 5. Multiple medical issues. RECOMMENDATIONS AND DISCUSSION: This is a 73-year-old woman, who presented with multiple medical issues. At this time, I recommend to continue current management and continue symptomatic treatment. Otherwise, currently the vitals are stable. We will resume the home medications. DVT prophylaxis. Incentive spirometry. We will follow the patient closely with you. MMODL / IJN: [id number] / MAU
[2024-05-06 03:43] LABS: Basophils % (A) 0 %; Eosinophils % (A) 0 %; HCT 24.8 % (34.0-46.0); HGB 8.3 gm/dL (11.4-16.0); Lymphocytes # (A) 0.9 k/uL (1.0-4.8); Lymphocytes % (A) 11 %; MCH 30.4 pg (25.0-35.0); MCHC 33.5 g/dL (31.0-37.0); MCV 90.6 fL (80.0-100.0); Mean Platelet Volume 8.9; Monocytes # (A) 0.6 k/uL (0-1.0); Monocytes % (A) 6 %; Neutrophils # (A) 7.1 k/uL (1.3-7.7); Neutrophils % (A) 82 %; Platelet Count 170 k/uL (150-450); RBC 2.73 m/uL (3.80-5.40); RDW 12.7 % (11.5-15.5); WBC 8.7 k/uL (3.8-10.6)
[2024-05-06 04:04] LABS: African American GFR (CKD) 67 (>60 ml/min/1.73 sqM); Anion Gap 9 mmol/L; Blood Urea Nitrogen 26 mg/dL (7-17); Calcium 8.2 mg/dL (8.4-10.2); Carbon Dioxide 22 mmol/L (22-30); Chloride 98 mmol/L (98-107); Glucose 133 mg/dL (74-99); Non-African American GFR(CKD) 58 (>60 ml/min/1.73 sqM); Potassium 3.7 mmol/L (3.5-5.1); Sodium 129 mmol/L (137-145)
[2024-05-06] MEDS: CYANOCOBALAMIN 500 MCG TAB PO SCH (07:53)
[2024-05-06] MEDS: CALCIUM CARB-VIT D 500 MG-5 MCG TAB PO SCH (07:53)
[2024-05-06] MEDS: MULTIVITAMINS, THERA 1 EACH TAB PO SCH (07:54)
[2024-05-06] MEDS: GABAPENTIN 100 MG CAP PO SCH (07:57)
[2024-05-06] MEDS: SODIUM CHLORIDE 0.9% 1,000 ML IV SCH (07:57)
[2024-05-06] MEDS: BACLOFEN 10 MG TAB PO SCH (07:57)
[2024-05-06] MEDS: SENNOSIDES-DOCUSATE SODIUM 1 EACH TAB PO SCH (07:57)
[2024-05-06] MEDS: ASPIRIN 81 MG PO SCH (07:57)
--- NOTE | 2024-05-06 09:27 | P.PN ---
Subjective Progress Note Date: 05/06/24 Principal diagnosis: 1. L3-4 spondylolisthesis grade 1, spondylosis, and stenosis, severe 2. L4-5 spondylolisthesis grade 1, spondylosis, and stenosis, moderate 3. L5-S1 spondylolisthesis, spondylosis, and stenosis, moderate 4. Lower extremity radiculopathy and weakness 5. Low back pain Patient seen and examined this morning. Patient is resting comfortably in bed. She does state that her pain is managed on current regimen. Family member is at bedside. Patient reports that she did sit at bedside and stand since the procedure and tolerated activity well. LSO brace is at bedside. She states she is looking forward to working with physical therapy later today. Surgical incision to the lumbar spine, dressing is clean dry and intact with Hemovac drain present and patent. Basilio catheter has been discontinued this morning, patient due to void. Continue to encourage patient to be up in chair for all meals and to increase activity as tolerated. Patient to perform incentive spirometer at least 10 times per hour while awake. No acute concerns. Objective - Vital Signs Vital signs: Vital Signs Temp 97.2 F L 05/06/24 07:09 Pulse 79 05/06/24 07:09 Resp 19 05/06/24 07:09 BP 86/48 05/06/24 07:09 Pulse Ox 100 05/06/24 07:09 FiO2 Intake & Output 05/05/24 05/06/24 05/06/24 18:59 06:59 18:59 Intake Total 1452 540 Output Total 475 525 80 Balance 977 15 -80 Weight 46.5 kg Intake: IV 1452 Oral 540 Output: Drainage 75 80 Right Lower Back 75 80 Urine 275 450 Estimated Blood Loss 200 Other: Voiding Method Indwelling Catheter - Exam Physical Examination General: The patient is awake and alert, in no acute distress Skin: Skin is warm and dry with no obvious rashes or lesions. Surgical incision to the lumbar spine, dressing is clean dry and intact with Hemovac present and patent. Eye: Pupils are equal, round and reactive to light, extra-ocular movements are intact; there is normal conjunctiva bilaterally. Neck: The neck is supple, there is no tenderness and ROM intact. Cardiovascular: There is a regular rate and rhythm. No murmur, rub or gallop is appreciated. Respiratory: Respirations are non-labored, breath sounds are equal. Gastrointestinal: Soft, non-distended, non-tender abdomen. Back: There is no tenderness to palpation in the midline, paralumbar, parathoracic or buttocks region. There is no obvious deformity . Musculoskeletal: ROM limited secondary to pain and stiffness from surgical procedure. Right: Shoulder abduction 5/5, elbow flexors 5/5, wrist dorsiflexors 5/5. finger abductor 5/5, director of aviation 5/5, hip flexor 4/5, knee flexor 4/5, ankle dorsiflexor 4/5, ankle plantarflexion 4/5 and extensor hallucis 4/5. Left: Shoulder abduction 5/5, elbow flexors 5/5, wrist dorsiflexors 5/5. finger abductor 5/5, director of aviation 5/5, hip flexor 4/5, knee flexor 4/5, ankle dorsiflexor 4/5, ankle plantarflexion 4/5 and extensor hallucis 4/5. Neurological: CN 2-12 intact. There are no obvious motor or sensory deficits. Movement and coordination equal and intact. Sensory exam to light touch intact C5-T1 and intact from L2-S1. Reflexes 2/4 in bilateral upper and lower extremities. Negative Hoffmans, babinski, and clonus signs. Psychiatric: Cooperative, appropriate mood & affect, normal judgment. - Labs CBC & Chem 7: 05/06/24 03:27 05/06/24 03:27 Labs: Abnormal Lab Results - Last 24 Hours (Table) 05/06/24 05/06/24 Range/Units 03:27 03:27 RBC 2.73 L (3.80-5.40) m/uL Hgb 8.3 L (11.4-16.0) gm/dL Hct 24.8 L (34.0-46.0) % Lymphocytes # 0.9 L (1.0-4.8) k/uL Sodium 129 L (137-145) mmol/L BUN 26 H (7-17) mg/dL Glucose 133 H (74-99) mg/dL Calcium 8.2 L (8.4-10.2) mg/dL Assessment and Plan Assessment: Postop day 1: [id number] decompression and fusion Plan: -Appreciate financial services education consultant and team management. -Activity: Ambulate QID, OOB all meals, up and about, limit lifting bending twisting to less than 5 lbs. Use walker or cane if needed for stability. -Daily PT/OT, increase ambulation strength and balance. -Brace when up and about, not needed in bed or chair -Pain control: Adequate at this time -Meds: reviewed -GI ppx: senna, Miralax -Due to void -DVT PPX: Aspirin 81mg daily -Hygiene: Maintain incision clean and dry. May change dressing as needed, please document in notes if performed. Meticulous cleaning after BMs away from the incision site -Drains: Maintain for now. Continue to monitor and record output q shift. -Encourage IS 10x/hr -Dispo: Anticipate discharge home with homecare in the next 48hrs *I reviewed and discussed this case with my attending Dr. Lawrence, whom has reviewed this chart and films and is in agreement with assessment and plan of care as outlined above. I have personally seen and examined the patient, performed the documentation and the assessment and plan as written. Number of minutes spent on the visit: 20m.
[2024-05-06] MEDS: LOSARTAN 50 MG TAB PO SCH (10:24)
[2024-05-06] MEDS: PANTOPRAZOLE 40 MG TABLET PO SCH (17:33)
--- NOTE | 2024-05-06 20:08 | PN ---
PROGRESS NOTE DATE OF SERVICE: 05/06/2024 SUBJECTIVE: This is a 73-year-old woman who was admitted after back surgery, is improving significantly. No chest pain. No palpitation. OBJECTIVE: VITAL SIGNS: Pulse 79, blood pressure 80/64, respirations 19. HEENT: Conjunctivae normal. CARDIOVASCULAR: S1, S2. RESPIRATIONS: Breath sounds diminished at the bases. ABDOMEN: Soft. BACK: Status post surgery. LABORATORY DATA: Sodium 129, hemoglobin 8.2. ASSESSMENT: 1. Status post L3-L4, L4-L5, L5-S1 bilateral laminectomy for severe degenerative joint disease and back surgery. 2. History of hypertension. 3. Mild postoperative hypotension. 4. Anemia. 5. Hyperlipidemia. 6. Mild intraoperative hypotension. 7. Multiple medical issues. RECOMMENDATIONS AND DISCUSSION: Recommend to continue current medications, continue symptomatic treatment. Hold off the blood pressure medications at this time. Otherwise, monitor labs closely. IV fluids. I would also recommend a set of troponins to complete the workup also and as well as an EKG also. See orders for further details. MMODL / IJN: [id number] /
[2024-05-06] MEDS: METOPROLOL SUCCINATE (ER) 25 MG TAB.ER.24H PO SCH (21:06)
[2024-05-07 09:13] LABS: ALT 32 U/L (8-44); AST 68 U/L (13-35); Albumin 3.5 g/dL (3.8-4.9); Albumin/Globulin Ratio 1.84 Ratio (1.60-3.17); Alkaline Phosphatase 47 U/L (41-126); BUN/Creat Ratio 21.22 Ratio (12.00-20.00); Blood Urea Nitrogen 19.1 mg/dL (9.0-27.0); Calcium 8.1 mg/dL (8.7-10.3); Carbon Dioxide 24.3 mmol/L (21.6-31.8); Chloride 103 mmol/L (96-109); Globulin 1.9 g/dL (1.6-3.3); Glucose 99 mg/dL (70-110); Potassium 3.8 mmol/L (3.5-5.5); Sodium 136 mmol/L (135-145); Total Bilirubin 0.4 mg/dL (0.3-1.2); Total Protein 5.4 g/dL (6.2-8.2)
[2024-05-07 09:17] LABS: Basophils # (A) 0.03 X 10*3/uL (0.00-0.10); Basophils % (A) 0.3 %; Eosinophils # (A) 0.12 X 10*3/uL (0.04-0.35); Eosinophils % (A) 1.3 %; HCT 23.2 % (37.2-46.3); HGB 7.7 g/dL (12.0-15.0); Lymphocytes # (A) 1.43 X 10*3/uL (0.90-5.00); Lymphocytes % (A) 15.2 %; MCH 29.2 pg (27.0-32.0); MCHC 33.2 g/dL (32.0-37.0); MCV 87.9 FL (80.0-97.0); Mean Platelet Volume 11.2 FL (9.5-12.2); Monocytes # (A) 0.66 X 10*3/uL (0.20-1.00); NRBC Per 100 WBC 0 X 10*3/uL (0.00-0.01); Neutrophils % (A) 75.7 %; Platelet Count 164 X 10*3/uL (140-440); RBC 2.64 X 10*6/uL (4.10-5.20); RDW 13.2 % (11.5-14.5); WBC 9.39 X 10*3/uL (4.50-10.00)
[2024-05-07] MEDS: FERROUS SULFATE 325 MG TAB PO SCH (10:18)
--- NOTE | 2024-05-07 11:57 | P.PN ---
Subjective Progress Note Date: 05/07/24 Principal diagnosis: Status post [id number] decompression and fusion Patient evaluated today at bedside, she is resting in her hospital bed. She admits to worsening pain throughout yesterday into today, she feels that the Tyro is not doing much at this time. She has been using the 0.5 mg of Dilaudid which does help. She has ambulated with the assistance of therapy, the urinary catheter was removed today. Hemovac drain continues to put out mild/moderate bloody serosanguineous fluid. Hemoglobin was noted to have dropped, patient's blood pressure is also been on the lower side. Patient denies any headaches, lightheadedness, chest pain or shortness of breath. Objective - Vital Signs Vital signs: Vital Signs Temp 98.1 F 05/07/24 11:42 Pulse 86 05/07/24 11:42 Resp 16 05/07/24 11:42 BP 117/54 05/07/24 11:42 Pulse Ox 97 05/07/24 11:42 FiO2 Intake & Output 05/06/24 05/07/24 05/07/24 18:59 06:59 18:59 Intake Total 0 Output Total 1135 1025 Balance -1135 -1025 0 Intake: Blood Product 0 Unit 0 Output: Drainage 160 125 Right Lower Back 160 125 Urine 975 900 Straight 325 Other: Voiding Method Indwelling Catheter # Voids 0 1 # Bowel Movements 0 - Exam Gen: AOx3, NAD VSS stable at this time Integument: Postop dressing removed, drain is in good position, eleanor are in good position Palpation: Mild tenderness with palpation of the lower lumbar spine ROM: Full range of motion all major muscle groups of the bilateral upper and lower extremities, no focal deficits appreciated Sensory Exam: Senory exam to light touch is intact C5-T1 Senosry exam to light touch is intact L2-S1 Motor: 5/5 strength appreciated in the bilateral upper extremities with shoulder elevation, shoulder abduction, wrist elbow extension, elbow flexion, wrist extension, wrist flexion, 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 4/5 strength appreciated the bilateral lower extremities with hip flexion, knee extension, knee flexion, plantarflexion, dorsiflexion, EHL, FHL Reflexes: 2/4 in all UE and LE Negative Cullen's bilaterally Negative Babinski bilaterally Negative clonus bilaterally - Labs CBC & Chem 7: 05/07/24 03:41 05/07/24 03:41 Labs: Abnormal Lab Results - Last 24 Hours (Table) 04/29/24 05/07/24 05/07/24 Range/Units 12:31 03:41 03:41 RBC 2.64 L (4.10-5.20) X 10*6/uL Hgb 7.7 L (12.0-15.0) g/dL Hct 23.2 L (37.2-46.3) % Immature Gran # 0.05 H (0.00-0.04) X 10*3/uL BUN/Creatinine Ratio 21.22 H (12.00-20.00) Ratio Calcium 8.1 L (8.7-10.3) mg/dL AST 68 H (13-35) U/L Total Protein 5.4 L (6.2-8.2) g/dL Albumin 3.5 L (3.8-4.9) g/dL Crossmatch See Detail Assessment and Plan Assessment: Postoperative day #2 status post [id number] decompression and fusion Acute blood loss anemia, expected surgical outcome Plan: Pain control, will add Percocet 5 mg / 325 mg, continue the Tyro also as needed. Multiple stool softeners on board, continue with those daily DVT prophylaxis, continue aspirin 81 mg daily New dressing was applied to surgical incision, monitor drain output. Hopeful drain removal on 05/08/2024 1 unit of packed RBCs have been ordered Encourage incentive spirometer LSO brace when up and ambulating., No bending, twisting or lifting. Utilize walker at all times Medical recommendations appreciated Discharge planning: Anticipate discharge to home with home health care in the next 24-48 hours Time with Patient: Less than 30
[2024-05-07] MEDS: oxyCODONE-APAP 5-325MG 1 EACH TAB PO PRN (13:11)
[2024-05-07] MEDS: HYDROmorphone 1 MG/ML 1 ML SYRINGE IVP PRN (21:05)
--- NOTE | 2024-05-07 21:20 | PN ---
PROGRESS NOTE DATE OF SERVICE: 05/07/2024 SUBJECTIVE: This is a 73-year-old woman, who was admitted after back surgery, is improving significantly. No chest pain. No palpitations. No fever. Hemoglobin 7.7, 1 unit of transfusion has been given. OBJECTIVE: VITAL SIGNS: Pulse is 85, blood pressure 118/66, respirations 16. CHEST: Clear to auscultation. CARDIOVASCULAR: S1, S2. ABDOMEN: Soft. BACK: Status post surgery. LABORATORY DATA: Noted. ASSESSMENT: 1. Status post L3-L4, L4-L5, L5-S1 bilateral laminectomy for severe degenerative joint disease and back surgery. 2. Anemia, status post transfusion, symptomatic. 3. History of hypertension. 4. Mild postoperative hypotension. 5. Hyperlipidemia. 6. Multiple medical issues. RECOMMENDATIONS AND DISCUSSION: Recommend to continue current medications, continue symptomatic treatment. Otherwise, the blood pressure is improving at this time. We will continue to monitor. Recommend followup labs tomorrow. Further recommendations to follow. MMODL / IJN: [id number] /
[2024-05-08] MEDS: PHENAZOPYRIDINE 100 MG TAB PO PRN (05:44)
[2024-05-08 07:06] LABS: Amorphous Sediment,Urine Rare /hpf; Appearance,Urine Clear (Clear); Bacteria,Urine Rare /hpf; Bilirubin,Urine Negative (Negative); Blood,Urine Moderate (Negative); Color,Urine Colorless; Glucose,Urine (UA) Negative (Negative); Ketones,Urine Negative (Negative); Leukocyte Esterase,Urine Negative (Negative); Nitrite,Urine Negative (Negative); Protein,Urine Negative (Negative); RBC,Urine 16 /hpf (0-5); Specific Gravity,Urine 1.005 (1.001-1.035); Squamous Epithelial Cell,Urine <1 /hpf (0-4); Urobilinogen,Urine <2.0 mg/dL (<2.0); WBC,Urine 1 /hpf (0-5)
[2024-05-08 08:31] LABS: Basophils # (A) 0.02 X 10*3/uL (0.00-0.10); Basophils % (A) 0.3 %; Eosinophils # (A) 0.22 X 10*3/uL (0.04-0.35); Eosinophils % (A) 3.6 %; HCT 27.6 % (37.2-46.3); HGB 8.8 g/dL (12.0-15.0); Lymphocytes # (A) 1.09 X 10*3/uL (0.90-5.00); MCH 28.4 pg (27.0-32.0); MCHC 31.9 g/dL (32.0-37.0); Mean Platelet Volume 11.5 FL (9.5-12.2); Monocytes # (A) 0.55 X 10*3/uL (0.20-1.00); Monocytes % (A) 9.1 %; NRBC Per 100 WBC 0 X 10*3/uL (0.00-0.01); Neutrophils # (A) 4.14 X 10*3/uL (1.80-7.70); Neutrophils % (A) 68.5 %; Platelet Count 142 X 10*3/uL (140-440); RDW 13.2 % (11.5-14.5); WBC 6.05 X 10*3/uL (4.50-10.00)
--- NOTE | 2024-05-08 11:50 | CDI ---
Documentation Clarification Form Date: 05/08/2024 10:53:33 AM From: Dia Castro RN CCDS Phone: [phone] Admit Date: 05/05/2024 09:39:00 AM Patient Name: Janel Bolanos I Visit Number: [id number] Discharge Date: ATTENTION: The Clinical Documentation Specialists (CDI) and [facility] Coding Staff appreciate your assistance in clarifying documentation. Please respond to the clarification below the line at the bottom and electronically sign. The CDI & [facility] Coding staff will review the response and follow-up if needed. Please note: Queries are made part of the Legal Health Record. If you have any questions, please contact the author of this message via ITS. Doctor: Macario Mild postoperative hypotension and mild intra operative hypotension is documented 05/06, Medicine note and the patient had Laminectomy, decompression, posteriorolateral and interbody fusion, 05/05. Additional clarification is requested regarding the relationship, if any, that exists between the diagnosis and the procedure. History/Risk Factors: Patients Admitting Diagnosis and Post-Operative Diagnosis L3-4 spondylolisthesis grade 1, spondylosis, and stenosis, severe L4-5 spondylolisthesis grade 1, spondylosis, and stenosis, moderate L5-S1 spondylolisthesis, spondylosis, and stenosis, moderate Lower extremity radiculopathy and weakness Low back pain Procedure performed: L5-S1; L4-5; L3-4: Intradiscal Osteotomy, 3 Column for deformity Correction. L5-S1; L4-5; L3-4 Posterolateral and Interbody fusion; Segmental Instrumentation L3 Pelvis; Attachment of the construct to the bony pelvis; L3- 4, L4-5, L5-S1 Bilateral laminectomy, complete facetectomy and foraminotomy for complete neural decompression deformity correction and cage placement. Clinical Indicators: 05/05: B/P 91/51; HR 59; RR 16; SpO2 98% 6L simple mask 05/05: B/P 95/52; HR 73; RR 16; SpO2 98% ra 05/06; B/P 86/48; HR 79; RR 19; SpO2 100% ra Treatment: 05/06 0.9NS 75cc/hr, Per medicine note 05/06: Recommend to continue current medications, continue symptomatic treatment.Hold off the blood pressure medications at this time. Otherwise, monitor labs closely.IV; per medicine note 05/07 Symptomatic treatment fluids. What relationship, if any, exists between the diagnosis of Hypotension and the procedure: [ ] Hypotension is not clinically significant and not a complication [ ] Hypotension is clinically significant and not a complication [ ] Hypotension is clinically significant and a complication [ ] Other please specify ____ [ ] Unable to determine (Template Last Revised: April 2024) Hypotension is not clinically significant and not a complication MTDD
--- NOTE | 2024-05-08 12:34 | P.PN ---
Subjective Progress Note Date: 05/08/24 Principal diagnosis: Status post [id number] decompression and fusion Patient evaluated today at bedside, she is resting in her hospital bed, she does have family at bedside. Patient did require IV Dilaudid earlier today for pain control. Her drain has slowed down significantly. Her hemoglobin remained stable after transfusion. Patient denies any headaches, lightheadedness, chest pain or shortness of breath. Objective - Vital Signs Vital signs: Vital Signs Temp 98.3 F 05/08/24 12:28 Pulse 79 05/08/24 12:28 Resp 16 05/08/24 12:28 BP 130/66 05/08/24 12:28 Pulse Ox 98 05/08/24 12:28 FiO2 Intake & Output 05/07/24 05/08/24 05/08/24 18:59 06:59 18:59 Intake Total 310 Output Total 180 Balance 310 -180 Intake: Blood Product 310 Rc As-1 Unit 310 [id number] Output: Drainage 180 Right Lower Back 180 Other: Voiding Method Toilet Toilet # Voids 5 3 - Exam Gen: AOx3, NAD VSS stable at this time Integument: Dressing was changed today at bedside, eleanor are all in good position condition. Hemovac drain was also removed. 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 4/5 strength appreciated the bilateral lower extremities with hip flexion, knee extension, knee flexion, plantarflexion, dorsiflexion, EHL, FHL Reflexes: 2/4 in all UE and LE Negative Cullen's bilaterally Negative Babinski bilaterally Negative clonus bilaterally - Labs CBC & Chem 7: 05/08/24 04:39 05/07/24 03:41 Labs: Abnormal Lab Results - Last 24 Hours (Table) 04/29/24 05/08/24 05/08/24 Range/Units 12:31 04:39 05:57 RBC 3.10 L (4.10-5.20) X 10*6/uL Hgb 8.8 L (12.0-15.0) g/dL Hct 27.6 L (37.2-46.3) % MCHC 31.9 L (32.0-37.0) g/dL Urine Blood Moderate H (Negative) Urine RBC 16 H (0-5) /hpf Amorphous Sediment Rare H (None) /hpf Urine Bacteria Rare H (None) /hpf Crossmatch See Detail Assessment and Plan Assessment: Postoperative day #3 status post [id number] decompression and fusion Acute blood loss anemia, expected surgical outcome Plan: Pain control, continue current medications. Avoid IV Dilaudid. Continue stool softeners DVT prophylaxis, continue aspirin 81 mg daily Monitor surgical dressing Encourage incentive spirometer LSO brace when up and ambulating., No bending, twisting or lifting. Utilize walker at all times Medical recommendations appreciated Discharge planning: Discharge home tomorrow with home health care (05/09/2024)
--- NOTE | 2024-05-08 19:51 | PN ---
PROGRESS NOTE DATE OF SERVICE: 05/08/2024 SUBJECTIVE: This is a 73-year-old woman, who was admitted after laminectomy, is complaining of back pain. The patient is being worked up for ECF rehab for severe gait dysfunction and pain. No chest pain. No palpitation. OBJECTIVE: VITAL SIGNS: Pulse 79, blood pressure 130/63, respirations 16. CHEST: Clear to auscultation. CARDIOVASCULAR: S1, S2. ABDOMEN: Soft. NERVOUS SYSTEM: Nonfocal. LABORATORY DATA: Hemoglobin 8.8. ASSESSMENT: 1. Status post L3-L4, L4-L5, L5-S1 bilateral laminectomy for severe degenerative joint disease and back surgery. 2. Anemia, status post transfusion, symptomatic. 3. History of hypertension. 4. Mild postoperative hypotension, improved. 5. Hyperlipidemia. 6. Multiple medical issues. RECOMMENDATIONS: Recommend to continue current medications, continue symptomatic treatment. Otherwise, pain management. Monitor closely and possible ECF rehab. Further recommendations to follow. MMODL / IJN: [id number] /
[2024-05-09 08:49] VITALS: BP 144/63; PULSE 82; RESP 17; TEMP 99
--- NOTE | 2024-05-09 12:44 | P.PN ---
Subjective Progress Note Date: 05/09/24 Principal diagnosis: Status post [id number] decompression and fusion Patient evaluated today at bedside, she is resting in her hospital bed, she does have family at bedside. Pain is well-controlled. Hemoglobin remained stable along with vitals. She is moving a lot better with physical therapy. She continues to urinate with no issues, she has not had a bowel movement at this time. Patient denies any headaches, lightheadedness, chest pain or shortness of breath. Objective - Vital Signs Vital signs: Vital Signs Temp 99.0 F 05/09/24 07:26 Pulse 82 05/09/24 07:26 Resp 17 05/09/24 07:26 BP 144/63 05/09/24 07:26 Pulse Ox 95 05/09/24 07:26 FiO2 Intake & Output 05/08/24 05/09/24 05/09/24 18:59 06:59 18:59 Other: Voiding Method Toilet Toilet # Voids 2 2 - Exam Gen: AOx3, NAD VSS stable at this time Integument: Postop dressing is in good position and condition Palpation: Mild tenderness with palpation of the lower lumbar spine ROM: Full range of motion all major muscle groups of the bilateral upper and lower ex tremities, no focal deficits appreciated Sensory Exam: Senory exam to light touch is intact C5-T1 Senosry exam to light touch is intact L2-S1 Motor: 5/5 strength appreciated in the bilateral upper extremities with shoulder elevation, shoulder abduction, wrist elbow extension, elbow flexion, wrist extension, 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 Patient can also resume her ibuprofen at home DVT prophylaxis, continue aspirin 81 mg daily New Optifoam dressing to be placed prior to discharge, this was discussed with nursing today at bedside Encourage incentive spirometer LSO brace when up and ambulating., No bending, twisting or lifting. Utilize walker at all times Medical recommendations appreciated Discharge planning: Patient will be discharged home today Time with Patient: Less than 30
--- NOTE | 2024-05-09 12:55 | P.DS ---
Providers Date of admission: 05/05/24 09:39 Expected date of discharge: 05/09/24 Attending physician: Mikey Lawrence DO Consults: 05/05/24 14:42 Consult Physician Routine Consulting Provider: Preston Sorto Consult Reason/Comments: Medical Management Do you want consulting provider notified?: Yes Primary care physician: [facility] Course: Date of admission: 04/04/2025 Date of discharge: 05/09/2024 Admission diagnosis: Status post [id number] posterior lateral decompression and fusion Discharge diagnosis: Same Attending physician: Dr. Lawrence Surgical procedures: [id number] posterior lateral decompression and fusion Brief history: Patient is a 73-year-old female with a history of chronic low back pain, bilateral lower extremity weakness with radiculopathy due to varying degrees of spondylosis, central canal and neuroforaminal stenosis. At this point patient has failed conservative treatment measures and has opted to proceed with a elective [id number] posterior lateral decompression and fusion. Hospital course: Details of patient's surgery can be found in operative report. Patient tolerated the procedure well and was subsequently transported [facility]. Patient's orthopeidc and medical care was provided daily. Patient had daily laboratory tests performed for evaluation of overall blood counts. Patient had daily physical therapy to include strengthening range of motion as well as education with walker ambulation. Patient was treated with aspirin, AL hose and compression stockings for their postoperative DVT prophylaxis during their inpatient stay. Patient was noted to have a relatively uneventful postoperative course. Patient reported satisfactory pain control with oral pain medications by postoperative day 3. Patient showed satisfactory progress with physical therapy. Patient moved steadily through the program and had no difficulty meeting the goals by postoperative day 4. Given patient's otherwise satisfactory course and having met physical therapy goals, plan is to discharge patient [home] on postoperative day 4. Discharge condition/disposition: Patient will be discharged [home] in stable condition. Discharge medications: Instructions are given on resumption of patient's normal daily medications per primary care recommendation, in addition patient will be prescribed Glenwood 10 mg / 325 mg, Duricef 500 mg, senna S, MiraLAX 17 g, ferrous sulfate 325mg. Spine Discharge and Recovery Instructions Medications: See medication list All medication refills should be obtained through your primary care doctor or your clinic spine surgeon. Please discuss prescription refills at your follow up appointment. Do not call the hospital for medication refills. Dressing: Leave your dressing in place for a total of 5 days post operatively. Then you may remove your dressing and leave open to air. Keep the area clean and if not able to keep area clean, then cover with sterile gauze and tape. Showering: You may shower 3 days after your procedure allowing soap and water to run over incision. Do not scrub. Do not soak. Blot dry. Follow up: Please confirm a follow up appointment with your surgeon 3 weeks post operatively. Please make an appointment to follow up with your PCP in 1-2 weeks after surgery for evaluation '3 phase, 3-week plan' POST OP WEEKS 1-3 1. Lifting/carrying/pushing/pulling limited to less than 5 pounds. 2. Do not sit for longer than 15 minutes at one time. Get up and walk around. Prolonged sitting is NOT advised. If you lay down, see if you can tolerate laying down on you front (belly side) 3. Walk for periods of 15 minutes = 1 mile but no longer; do it multiple times times each day. 4. Ice your low back after activity. POST OP WEEKS 3-6 1. Lifting limited to less than 20 pounds. 2. Do not sit for longer than 30 minutes at a time. Frequently change positions. Use a sit-to stand workstation or take frequent breaks from sitting if you have returned to work. 3. Walk for 30 minutes each day. If possible, do these three or more times a day POST OP WEEKS 6+ At your 6-week appointment we will give you a physical therapy referral to focus on a core stabilization and strengthening program. You should also work on leg & buttock strengthening, hamstring & quadriceps stretching, and continue a low impact aerobic activity program such as swimming, walking, or riding a stationary bicycle. During the initial 6 weeks after your surgery, you are at the highest risk of re-injuring your spine. You should generally avoid BLT's (bending, lifting and twisting combination motions) and follow the above guidelines to reduce the chance of reinjury. You can anticipate post op appointments in our office at approximately 3 weeks and 6 weeks after your surgery. INCISION CARE: If your incision is not draining you do NOT need to cover it with a dressing. Keep your incision clean, dry and intact. In most cases, we apply skin glue, eleanor or sutures to the incision at the time of surgery. This will be like a crust or have the appearance of a scab and will fall off in time on its own. The stitches or eleanor need to be removed at 3 weeks post op appointment. You may begin to shower 3 days after surgery (this allows the glue to buckley well). However, please avoid scrubbing the incision site or peeling off any of the skin glue. This will ensure optimal healing of your incision. Also, during this time avoid soaking the incision area in water - this includes swimming pools, hot tubs or baths. No ointments, lotions or oils on the incision until your surgeon allows. Leave eleanor, sutures or glue in place. Neurological dysfunction that comes on suddenly can also be a sign of a stroke. Below some common symptoms of a stroke are listed: B - balance difficulty such as sudden onset walking or leaning to one side - NEW E - eye problem such as sudden double vision or trouble seeing on one side - NEW F - Facial weakness or numbness on one side - NEW A - Arm or leg weakness or numbness on one side - NEW S - Slurred speech or difficulty with word finding - NEW T - Time is BRAIN! Call 911 as soon as you recognize these symptoms Diet: Consume a regular diet rich in vegetables and lean protein such as chicken or fish. You should consume in a ratio of approximately 20% fats|40% carbohydrates|40%protein. Vegetables, sweet potatoes, brown rice or quinoa are examples of good carbohydrates. Chips, white bread, cookies and sweets/sugar are examples of bad carbohydrates. Limit your bad carbs, go wild with good carbs. "Life's Simple 7" Guidelines as per [place] [employer] These will help you reclaim your life after surgery and cutter operator helper in your recovery, keeping in mind your restrictions. (1) Get Active. Physical activity can help people lose weight, control high blood pressure and cholesterol, feel emotionally better, and sleep better. (2) Control Cholesterol. Avoid a diet high in saturated fat, trans fat, & cholesterol. Limit whole milk & cream, ice cream, butter, egg yolks, processed meats (like sausage and hot dogs), and fatty meats. Choose healthy foods that are low in saturated fat, trans fat and cholesterol which include: Fruits and vegetables, fiber rich grain products (like whole grain pasta and brown rice), lean meat such as chicken, fish, nuts, seeds, and legumes. (3) Eat Better. Eat small portions. Shop at the grocery with a list and do not stray from it. Tips for a healthy diet include: Limit sodium intake to less than 1500mg daily, avoid prepackaged, processed, and fast foods, choose a diet rich in fruits, vegetables, and whole grain, high fiber foods, and limit saturated & cholesterol in your diet. (4) Manage Blood Pressure. If you have high blood pressure, you should have a c uff at home so that you can check your blood pressure regularly. Be sure you have a good cuff. An arm one is generally better than a wrist one. Bring the cuff to a doctor's appointment to validate that the measurements that your cuff are taking are accurate. Take your blood pressure twice daily when you are sitting down and relaxing. Record the numbers in a log and bring this log with you to your doctors' appointments. (5) Lose Weight if your BMI is above 25. A healthy BMI is between 19-25. To calculate Your BMI, you may use a Standard BMI Calculator on the NIH BMI website: <www.nhlbi.nih.gov/guidelines/obesity/BMI/bmicalc.htm>. Weigh oneself daily. If you are overweight, set a goal to lose weight. A pound a week loss if needed is a good target. (6) Reduce Blood Sugar. Limit foods and liquids with "added sugars." (Added sugars include sucrose, fructose, glucose, maltose, dextrose, high fructose corn syrup, corn syrup, concentrated fruit juice and honey). (7) Stop Smoking. If you smoke, quitting smoking is one of the best things that you can do for your health. Smoking increases your risk of heart attack, stroke, and peripheral vascular disease, which is a build-up of plaque in your arteries. Please discard all the cigarettes and lighters in your house. Have a plan for what you will do when you have the urge to smoke. Direct and second- hand smoke shortens your life as well as the lives of your family, friends and others around you. For your health and the health of those around you, please consider quitting! Proper Bending Body Mechanics: Maintain a wide stance with one foot slightly in front of the other. Keep your back straight. Bend utilizing the strength in your hips and knees. Do not bend at the waist. Maintain the lifted object at your waist-level close to your body. Avoid lifting weight that causes immediately pain or pain anywhere in the body afterwards. Smoking/Nicotine If there was ever one thing that you could do to increase your overall health, decrease your risk of cardiovascular problems by about 39% the second you make the choice, it is to STOP SMOKING. Your body's most instant gratification is the second you stop smoking. We have all heard the studies, read the articles but it is true, smoking is extremely bad for your overall health, and moreover it is detrimental to your bone health. Nicotine, IN ANY FORM, kills bone cells, prevents your body from healing fractures, and significantly prolongs healing after surgery. In spine surgery specifically, it increases your risk of not healing your bones to create a fusion and increases your risk of having a revision surgery due to this up to 60%. I know it is hard. I know it feels impossible. But there are ways. Take control of your life. We are here to help you through it. And when you are ready, ask us and we can direct you to help if you desire. Use the START Plan to Quit Smoking (please visit the HelpguZext[employer].org website listed below for more information): S = Set a quit date. Choose a date within the next 2 weeks, so you have enough time to prepare without losing your motivation to quit. If you mainly smoke at work, quit on the weekend, so you have a few days to adjust to the change. T = Tell family, friends, and co-workers that you plan to quit. Let your friends and family in on your plan to quit smoking and tell them you need their support and encouragement to stop. Look for a quit dylan who wants to stop smoking as well. You can help each other get through the rough times. A = Anticipate and plan for the challenges you'll face while quitting. Most people who begin smoking again do so within the first 3 months. You can help yourself make it through by preparing ahead for common challenges, such as nicotine withdrawal and cigarette cravings. R = Remove cigarettes and other tobacco products from your home, car, and work. Throw away all your cigarettes (no emergency pack!), lighters, ashtrays, and matches. Wash your clothes and freshen up anything that smells like smoke. Shampoo your car, clean your drapes and carpet, and steam your furniture. T = Talk to your doctor about getting help to quit. Your doctor can prescribe medication to help with withdrawal and suggest other alternatives. If you can't see a doctor, you can get many products over the counter at your local pharmacy or grocery store, including the nicotine patch, nicotine lozenges, and nicotine gum. Resources for Quitting Smoking: <http s://www.[place].gov/documents/[facility]/Quit_Tobacco_Resources_for_patients_313480_7 .pdf> Supplementation: Take recommended dosages of Vitamin D and Calcium to help fortify your bones and help them to heal. See your health maintenance packet for dosages and recommended levels. DVT/VTE prophylaxis: You will be given compression stockings from the hospital. Wear these daily for the first two weeks after surgery. You may take them off at night. You may be prescribed a medication to help thin your blood. Take this as directed. If you are not prescribed this medication, early and frequent ambulation has been shown to be the best prophylaxis to deep vein thrombosis and sequelae related to this event. Procedures: [id number] posterior lateral decompression and fusion Patient Condition at Discharge: Good Plan - Discharge Summary Discharge Rx Participant: Yes New Discharge Prescriptions: New polyethylene glycoL 3350 [Miralax] 17 gm PO DAILY PRN #21 packet PRN Reason: Constipation HYDROcodone/APAP 10-325MG [Glenwood 10-325] 1 tab PO Q4HR PRN 7 Days #42 tab PRN Reason: Pain Baclofen 10 mg PO DAILY PRN #30 tab PRN Reason: Muscle Spasm cefaDROXiL [Duricef] 500 mg PO Q12HR 5 Days #10 cap Ferrous Sulfate [Iron (65 MG Elemental)] 325 mg PO BID #60 tab Gabapentin [Neurontin] 100 mg PO DAILY #30 cap Sennosides/Docusate Sodium [Senna-S 8.6-50 mg Tablet] 2 each PO DAILY PRN #30 tablet PRN Reason: Constipation No Action Gabapentin [Neurontin] 200 mg PO HS busPIRone HCL 10 mg PO BID Metoprolol Succinate (ER) [Toprol Xl] 25 mg PO HS Ibuprofen 800 mg PO Q8H PRN PRN Reason: Pain Rosuvastatin Calcium 5 mg PO HS Calcium Carbonate/Vitamin D3 [Calcium 500-Vit D3 5 Mcg (200 Iu)] 1 each PO QAM Montelukast [Singulair] 10 mg PO HS Losartan [Cozaar] 50 mg PO QAM Baclofen 10 mg PO QAM Cyanocobalamin [Vitamin B-12] 500 mcg PO QAM hydroCHLOROthiazide 25 mg PO QAM Multivitamin [Multivitamins Adult Gummies] 1 each PO QAM Cranberry Fruit Extract [Cranberry] 500 mg PO QAM Gabapentin [Neurontin] 100 mg PO DAILY Discharge Medication List Baclofen 10 mg PO QAM 03/27/23 [History] Gabapentin [Neurontin] 200 mg PO HS 03/27/23 [History] Losartan [Cozaar] 50 mg PO QAM 03/27/23 [History] Montelukast [Singulair] 10 mg PO HS 03/27/23 [History] Calcium Carbonate/Vitamin D3 [Calcium 500-Vit D3 5 Mcg (200 Iu)] 1 each PO QAM 07/29/23 [History] Cranberry Fruit Extract [Cranberry] 500 mg PO QAM 07/29/23 [History] Cyanocobalamin [Vitamin B-12] 500 mcg PO QAM 07/29/23 [History] Ibuprofen 800 mg PO Q8H PRN 07/29/23 [History] Metoprolol Succinate (ER) [Toprol Xl] 25 mg PO HS 07/29/23 [History] Multivitamin [Multivitamins Adult Gummies] 1 each PO QAM 07/29/23 [History] Rosuvastatin Calcium 5 mg PO HS 07/29/23 [History] busPIRone HCL 10 mg PO BID 07/29/23 [History] hydroCHLOROthiazide 25 mg PO QAM 07/29/23 [History] Gabapentin [Neurontin] 100 mg PO DAILY 05/01/24 [History] Baclofen 10 mg PO DAILY PRN #30 tab 05/09/24 [Rx] Ferrous Sulfate [Iron (65 MG Elemental)] 325 mg PO BID #60 tab 05/09/24 [Rx] Gabapentin [Neurontin] 100 mg PO DAILY #30 cap 05/09/24 [Rx] HYDROcodone/APAP 10-325MG [Glenwood 10-325] 1 tab PO Q4HR PRN 7 Days #42 tab 05/09/24 [Rx] Sennosides/Docusate Sodium [Senna-S 8.6-50 mg Tablet] 2 each PO DAILY PRN #30 tablet 05/09/24 [Rx] cefaDROXiL [Duricef] 500 mg PO Q12HR 5 Days #10 cap 05/09/24 [Rx] polyethylene glycoL 3350 [Miralax] 17 gm PO DAILY PRN #21 packet 05/09/24 [Rx] Follow up Appointment(s)/Referral(s): Mikey Lawrence DO [Doctor of Osteopathic Medicine] - 05/20/24 11:15 am [facility] Visiting Nurse, [NON-STAFF] - As Needed Activity/Diet/Wound Care/Special Instructions: Spine Discharge and Recovery Instructions Medications: See medication list All medication refills should be obtained through your primary care doctor or your clinic spine surgeon. Please discuss prescription refills at your follow up appointment. Do not call the hospital for medication refills. Dressing: Leave your dressing in place for a total of 5 days post operatively. Then you may remove your dressing and leave open to air. Keep the area clean and if not able to keep area clean, then cover with sterile gauze and tape. Showering: You may shower 3 days after your procedure allowing soap and water to run over incision. Do not scrub. Do not soak. Blot dry. Follow up: Please confirm a follow up appointment with your surgeon 3 weeks post operatively. Please make an appointment to follow up with your PCP in 1-2 weeks after surgery for evaluation '3 phase, 3-week plan' POST OP WEEKS 1-3 1. Lifting/carrying/pushing/pulling limited to less than 5 pounds. 2. Do not sit for longer than 15 minutes at one time. Get up and walk around. Prolonged sitting is NOT advised. If you lay down, see if you can tolerate laying down on you front (belly side) 3. Walk for periods of 15 minutes = 1 mile but no longer; do it multiple times times each day. 4. Ice your low back after activity. POST OP WEEKS 3-6 1. Lifting limited to less than 20 pounds. 2. Do not sit for longer than 30 minutes at a time. Frequently change positions. Use a sit-to stand workstation or take frequent breaks from sitting if you have returned to work. 3. Walk for 30 minutes each day. If possible, do these three or more times a day POST OP WEEKS 6+ At your 6-week appointment we will give you a physical therapy referral to focus on a core stabilization and strengthening program. You should also work on leg & buttock strengthening, hamstring & quadriceps stretching, and continue a low impact aerobic activity program such as swimming, walking, or riding a stationary bicycle. During the initial 6 weeks after your surgery, you are at the highest risk of re-injuring your spine. You should generally avoid BLT's (bending, lifting and twisting combination motions) and follow the above guidelines to reduce the chance of reinjury. You can anticipate post op appointments in our office at approximately 3 weeks and 6 weeks after your surgery. INCISION CARE: If your incision is not draining you do NOT need to cover it with a dressing. Keep your incision clean, dry and intact. In most cases, we apply skin glue, eleanor or sutures to the incision at the time of surgery. This will be like a crust or have the appearance of a scab and will fall off in time on its own. The stitches or eleanor need to be removed at 3 weeks post op appointment. You may begin to shower 3 days after surgery (this allows the glue to buckley well). However, please avoid scrubbing the incision site or peeling off any of the skin glue. This will ensure optimal healing of your incision. Also, during this time avoid soaking the incision area in water - this includes swimming pools, hot tubs or baths. No ointments, lotions or oils on the incision until your surgeon allows. Leave eleanor, sutures or glue in place. Neurological dysfunction that comes on suddenly can also be a sign of a stroke. Below some common symptoms of a stroke are listed: B - balance difficulty such as sudden onset walking or leaning to one side - NEW E - eye problem such as sudden double vision or trouble seeing on one side - NEW F - Facial weakness or numbness on one side - NEW A - Arm or leg weakness or numbness on one side - NEW S - Slurred speech or difficulty with word finding - NEW T - Time is BRAIN! Call 911 as soon as you recognize these symptoms Diet: Consume a regular diet rich in vegetables and lean protein such as chicken or fish. You should consume in a ratio of approximately 20% fats|40% carbohydrates|40%protein. Vegetables, sweet potatoes, brown rice or quinoa are examples of good carbohydrates. Chips, white bread, cookies and sweets/sugar are examples of bad carbohydrates. Limit your bad carbs, go wild with good carbs. "Life's Simple 7" Guidelines as per [place] [employer] These will help you reclaim your life after surgery and cutter operator helper in your recovery, keeping in mind your restrictions. (1) Get Active. Physical activity can help people lose weight, control high blood pressure and cholesterol, feel emotionally better, and sleep better. (2) Control Cholesterol. Avoid a diet high in saturated fat, trans fat, & cholesterol. Limit whole milk & cream, ice cream, butter, egg yolks, processed meats (like sausage and hot dogs), and fatty meats. Choose healthy foods that are low in saturated fat, trans fat and cholesterol which include: Fruits and vegetables, fiber rich grain products (like whole grain pasta and brown rice), lean meat such as chicken, fish, nuts, seeds, and legumes. (3) Eat Better. Eat small portions. Shop at the grocery with a list and do not stray from it. Tips for a healthy diet include: Limit sodium intake to less than 1500mg daily, avoid prepackaged, processed, and fast foods, choose a diet rich in fruits, vegetables, and whole grain, high fiber foods, and limit saturated & cholesterol in your diet. (4) Manage Blood Pressure. If you have high blood pressure, you should have a cuff at home so that you can check your blood pressure regularly. Be sure you have a good cuff. An arm one is generally better than a wrist one. Bring the cuff to a doctor's appointment to validate that the measurements that your cuff are taking are accurate. Take your blood pressure twice daily when you are sitting down and relaxing. Record the numbers in a log and bring this log with you to your doctors' appointments. (5) Lose Weight if your BMI is above 25. A healthy BMI is between 19-25. To calculate Your BMI, you may use a Standard BMI Calculator on the NIH BMI website: <www.nhlbi.nih.gov/guidelines/obesity/BMI/bmicalc.htm>. Weigh oneself daily. If you are overweight, set a goal to lose weight. A pound a week loss if needed is a good target. (6) Reduce Blood Sugar. Limit foods and liquids with "added sugars." (Added sugars include sucrose, fructose, glucose, maltose, dextrose, high fructose corn syrup, corn syrup, concentrated fruit juice and honey). (7) Stop Smoking. If you smoke, quitting smoking is one of the best things that you can do for your health. Smoking increases your risk of heart attack, stroke, and peripheral vascular disease, which is a build-up of plaque in your arteries. Please discard all the cigarettes and lighters in your house. Have a plan for what you will do when you have the urge to smoke. Direct and second- hand smoke shortens your life as well as the lives of your family, friends and others around you. For your health and the health of those around you, please consider quitting! Proper Bending Body Mechanics: Maintain a wide stance with one foot slightly in front of the other. Keep your back straight. Bend utilizing the strength in your hips and knees. Do not bend at the waist. Maintain the lifted object at your waist-level close to your body. Avoid lifting weight that causes immediately pain or pain anywhere in the body afterwards. Smoking/Nicotine If there was ever one thing that you could do to increase your overall health, decrease your risk of cardiovascular problems by about 39% the second you make the choice, it is to STOP SMOKING. Your body's most instant gratification is the second you stop smoking. We have all heard the studies, read the articles but it is true, smoking is extremely bad for your overall health, and moreover it is detrimental to your bone health. Nicotine, IN ANY FORM, kills bone cells, prevents your body from healing fractures, and significantly prolongs healing after surgery. In spine surgery specifically, it increases your risk of not healing your bones to create a fusion and increases your risk of having a revision surgery due to this up to 60%. I know it is hard. I know it feels impossible. But there are ways. Take control of your life. We are here to help you through it. And when you are ready, ask us and we can direct you to help if you desire. Use the START Plan to Quit Smoking (please visit the [email or web address] website listed below for more information): S = Set a quit date. Choose a date within the next 2 weeks, so you have enough time to prepare without losing your motivation to quit. If you mainly smoke at work, quit on the weekend, so you have a few days to adjust to the change. T = Tell family, friends, and co-workers that you plan to quit. Let your friends and family in on your plan to quit smoking and tell them you need their support and encouragement to stop. Look for a quit dylan who wants to stop smoking as well. You can help each other get through the rough times. A = Anticipate and plan for the challenges you'll face while quitting. Most people who begin smoking again do so within the first 3 months. You can help yourself make it through by preparing ahead for common challenges, such as nicotine withdrawal and cigarette cravings. R = Remove cigarettes and other tobacco products from your home, car, and work. Throw away all your cigarettes (no emergency pack!), lighters, ashtrays, and matches. Wash your clothes and freshen up anything that smells like smoke. Shampoo your car, clean your drapes and carpet, and steam your furniture. T = Talk to your doctor about getting help to quit. Your doctor can prescribe medication to help with withdrawal and suggest other alternatives. If you can't see a doctor, you can get many products over the counter at your local pharmacy or grocery store, including the nicotine patch, nicotine lozenges, and nicotine gum. Resources for Quitting Smoking: <https://www.[place].gov/documents/[facility]/Quit_Tobacco_Resources_for_patients_313 480_7.pdf> Supplementation: Take recommended dosages of Vitamin D and Calcium to help fortify your bones and help them to heal. See your health maintenance packet for dosages and recommended levels. DVT/VTE prophylaxis: You will be given compression stockings from the hospital. Wear these daily for the first two weeks after surgery. You may take them off at night. You may be prescribed a medication to help thin your blood. Take this as directed. If you are not prescribed this medication, early and frequent ambulation has been shown to be the best prophylaxis to deep vein thrombosis and sequelae related to this event. Discharge Disposition: HOME WITH HOME HEALTH SERVICES
--- NOTE | 2024-05-10 07:51 | PN ---
PROGRESS NOTE DATE OF SERVICE: 05/09/2024 SUBJECTIVE: This is a 73-year-old woman, who was admitted after back surgery, laminectomy. She is improving significantly. No chest pain. No palpitation. OBJECTIVE: VITAL SIGNS: Pulse is 82, blood pressure 140/63, respirations 17. HEENT: Conjunctivae normal. CARDIOVASCULAR: S1, S2. RESPIRATIONS: Breath sounds diminished at the bases. ABDOMEN: Soft. NERVOUS SYSTEM: Nonfocal. LABORATORY DATA: Hemoglobin 8.8. ASSESSMENT: 1. Status post L3-4, L4-5, L5-S1 bilateral laminectomy, severe degenerative joint disease, and back surgery. 2. Anemia, status post transfusion, improved. 3. History of hypertension. 4. Mild postoperative hypotension, improved. 5. Hyperlipidemia. 6. Multiple medical issues. RECOMMENDATIONS: Recommended to continue current management and continue symptomatic treatment. Continue current medications. Closely follow with primary physician. Followup labs with the primary physician and rest of the recommendations per Orthopedic Surgery. Further recommendations to follow. MMODL / IJN: [id number] /
== END 2024-05-09 14:09 | disposition home health service (06) | DRG 427 ==
LOC: 2ORMAIN 09:39 → 4SSUR 17:28
PROVIDERS: ADMIT Orthopaedic Surgery; ATTEND Orthopaedic Surgery
PROC: 0SG1071 Fusion of 2 or more Lumbar Vertebral Joints with Autologous Tissue Substitute, Posterior Approach, Posterior Column, Open Approach (ICD-10-PCS; 2024-05-05)
PROC: 0SG30AJ Fusion of Lumbosacral Joint with Interbody Fusion Device, Posterior Approach, Anterior Column, Open Approach (ICD-10-PCS; 2024-05-05)
PROC: 0SG3071 Fusion of Lumbosacral Joint with Autologous Tissue Substitute, Posterior Approach, Posterior Column, Open Approach (ICD-10-PCS; 2024-05-05)
PROC: 01NB0ZZ Release Lumbar Nerve, Open Approach (ICD-10-PCS; 2024-05-05)
PROC: 0QS00ZZ Reposition Lumbar Vertebra, Open Approach (ICD-10-PCS; 2024-05-05)
PROC: 0QS10ZZ Reposition Sacrum, Open Approach (ICD-10-PCS; 2024-05-05)
PROC: 0QH304Z Insertion of Internal Fixation Device into Left Pelvic Bone, Open Approach (ICD-10-PCS; 2024-05-05)
PROC: 0QH204Z Insertion of Internal Fixation Device into Right Pelvic Bone, Open Approach (ICD-10-PCS; 2024-05-05)
PROC: 8E0WXBF Computer Assisted Procedure of Trunk Region, With Fluoroscopy (ICD-10-PCS; 2024-05-05)
PROC: 0SG10AJ Fusion of 2 or more Lumbar Vertebral Joints with Interbody Fusion Device, Posterior Approach, Anterior Column, Open Approach (ICD-10-PCS; principal; 2024-05-05 11:15)
DX: M47.26 Other spondylosis with radiculopathy, lumbar region (principal); D62 Acute posthemorrhagic anemia; I10 Essential (primary) hypertension; E78.5 Hyperlipidemia, unspecified; M43.16 Spondylolisthesis, lumbar region; M48.061 Spinal stenosis, lumbar region without neurogenic claudication; H91.93 Unspecified hearing loss, bilateral; Z97.4 Presence of external hearing-aid; Z87.891 Personal history of nicotine dependence; Z79.899 Other long term (current) drug therapy
CPT/HCPCS: 36415; 71045; 72100; 72131; 80048; 80053; 81001; 84484; 85025; 86850; 86900; 86901; 86920; 94760